=== PATIENT | male | born 1950 | race Caucasian/White ===

== ENCOUNTER 2018-04-12 14:01 | Outpatient (REF) | payer MEDICARE, OTHER, SELFPAY ==
[2018-04-12 21:09] LABS: Abs Immature Grans 0.02 k/cumm (0.0-0.09); Absolute Basophil Count 0.03 k/cumm (0.0-0.2); Absolute Eosinophil Count 0.04 k/cumm (0.0-0.7); Absolute Lymphocyte Count 0.92 k/cumm (1.2-3.4); Absolute Monocyte Count 0.43 k/cumm (0.11-0.7); Absolute Neutrophil Count 8.09 k/cumm (1.2-6.7); Basophils % 0.3; Eosinophils % 0.4; HCT 45.3 % (40.0-50.0); HGB 14.6 g/dL (13.5-17.5); Immature Grans % 0.2; Lymphocytes % 9.7; Mean Corp. HGB Concentration 32.2 g/dL (32.0-36.0); Mean Corpuscular Hemoglobin 29.5 pg (27.0-33.0); Mean Corpuscular Volume 91.5 fL (80-95); Mean Platelet Volume 10.2 fL (8.0-11.0); Monocytes % 4.5; Neutrophils % 84.9; Platelet Count 244 x1000/uL (130-400); RBC 4.95 m/cumm (4.50-6.00); RBC Distribution Width 13.7 % (11.8-14.1); White Blood Cell Count 9.53 k/cumm (4.4-10.8)
[2018-04-12 21:20] LABS: Iron 112 ug/dL (50-175); Total Iron Binding Capacity 333 ug/dL (250-450); Transferrin Sat 34 % (20-55)
[2018-04-12 21:34] LABS: Ferritin 103 ng/mL (8-388)
== END 2018-04-12 14:21 ==
LOC: NCHCN 14:01
PROVIDERS: PCP Nurse Practitioner Family; Visit Provider Nurse Practitioner
DX: R53.81 Other malaise (principal); F32.9 Major depressive disorder, single episode, unspecified
CPT/HCPCS: 82728; 83540; 83550; 85025

== ENCOUNTER 2018-06-07 17:08 | Emergency (ER) | payer MEDICARE, OTHER, SELFPAY ==
[2018-06-07] VITALS (22 sets, daily range): BP systolic 110–129; BP diastolic 63–74; PULSE 77–102; RESP 9–20; TEMP 36.6–36.8; O2SAT 96–100
--- NOTE | 2018-06-07 17:26 | W.ED.GENAD ---
Discharge Plan Disposition Patient Disposition: HOME Condition: Fair Discharge Details Chief Complaint: Dizzy/Sync Clinical Impression: Weakness, Fatigue, CVA (cerebral vascular accident) Primary Care Provider: DI[facility]ANTE,[facility] Provider: Nereida Falcon Home Meds and New Rx's Prescriptions: Continue promethazine 25 mg tablet 25 mg PO Q6H PRN (Reason: nausea and vomiting) Qty: 30 RF: 1 lamotrigine 100 mg tablet 100 mg PO ONCE Qty: 30 RF: 3 ascorbic acid (vitamin C) [Vitamin C] 500 MG tablet 1,000 mg PO DAILY RF: 0 diphenhydramine HCl [Benadryl] 25 MG capsule 25 mg PO HS RF: 0 multivitamin 1 EACH capsule 1 ea PO DAILY RF: 0 cholecalciferol (vitamin D3) 1,000 UNIT capsule 1,000 unit PO DAILY RF: 0 calcium carbonate [Calcium 500] 500 MG tablet 500 mg PO DAILY RF: 0 food supplemt, lactose-reduced [Ensure Original] 237 ML liquid 237 ml PO BID RF: 0 methylphenidate HCl [Ritalin] 10 mg tablet 10 mg PO 1-2x/d Qty: 60 RF: 0 lorazepam 2 mg tablet 2 mg SL BID Qty: 45 RF: 0 tramadol 50 mg tablet 50 mg PO 1-2x/d Qty: 30 RF: 0 prednisone 10 MG tablet 10 mg PO DAILY RF: 0 Immune Support Tablet RF: 0 Herbal Support 1 ea PO DAILY RF: 0 No Action aspirin [Aspirin Childrens] 81 mg Tablet,Chewable 81 mg PO DAILY RF: 0 Discharge Instructions Instructions: Weakness (ED), Fatigue (ED) Additional Instructions: Encourage hydration. Please continue with medications as previously prescribed. Begin taking one aspirin daily. Please call primary care tomorrow and try to reschedule upcoming appointment to a sooner time. Please follow up with Dr. Guzman, number listed below. Continue your care with your press writer. If you develop new/worsening symptoms seek care urgently once again. Referrals: Eren Severino MD [ [facility] STAFF PHYSICIAN] - ([phone]) Discharge Data Discharge Date/Time-TO BE ENTERED AT DEPARTURE: 06/07/18 20:03 Medical Decision Making Patient presents with c/c of acute on chronic weakness, fatigue, diminished appetite and lightheadedness. Patient has had chronic issues since 2012 with waxing/waning of his symptoms. Is very frustrated that despite multiple workups no definitive diagnosis for the source of his symptoms has been found. Today, he is primarily concerned with an acute increase of these symptoms over the past 3-4 days. Has recently increased his prednisone from 3mg QD to 10mg QD at the advisement of his press writer. Revewied patients history and previous visits. reviewed recent notes from specialists for these issues. At this point, no acute abnormalities are noted. On exam, patient appears dehydrated, thin and pale. Appears primarily chronic in nature. Neurologic exam is intact, no acute abnormalities. At this time, I have broad differential diagnoses, will obtain head CT, EKG and laboratory evaluation. EKG was obtained, reviewed by Dr. Siddiqui with no acute abnormalities noted, no findings to suggest ischemia. Laboratory evaluation without significant abnormality. CT reviewed by radiologist. Significant for mild global cerebral atrophy consistent with patient's age. Minimal patchy hypodensitites within the white matter tracts of both cerebral hemispheres, nonspecific but typically seen with small vessel disease/chronic white matter ischemic changes and itching. Small hypodensities within the anterior limb o the right internal capsul, likely subacute/chronic lacunar infarct. Ventricle are unremarkable, no ventriculomegaly. Advised considering MRI if clinically indicated. Consulted with Dr. Giang who has seen the patient previously. In particular, we discussed the hypodensity noted on the CT. She advised beginning the patient on aspirin. I questioned the need for Plavix and she advised against this and just to begin the ASA. We discussed the possible need for MRI, she will see the patient first in clinic again and order this as needed. We discussed the symptoms typically associates with a stroke in the affected area, he denies ever noted a focal motor or sensory deficit. Unknown when stroke may have occurred. Discussed the findings with the patient and his friend. Discussed recommendations of Dr. Guzman. Patient has been on ASA previously, has not been taking this recently. He denies any stroke like symptoms. Again, no focal deficits at this time. I advised that at this time, I do not see a source of his acute on chronic flare of symptoms. He has upcoming appointment with PCP in 2 weeks, I advised he try to contact them to see if he can move this up. He did receive IV bolus while here which he reports helped. I discussed that he did appear dehydrated on exam which may be the source of his increased symptoms. He will contact neurologist for follow up as advised above. Advised he continue to work with his press writer. Discussed new/worsening symptoms and when to seek care urgently once again. All of his questions and concerns were addressed, he is in agreement iwth this plan. Will begin the daily ASA. Tick and Lyme panel, which patient has had a few years ago and found to be negative, is still pending. We will contact him with any positive results. HPI General Mode of arrival: ambulatory. Date/Time Provider Initiated Documentation: 06/07/18 17:13. Limitations to Documentation: no limitations. Information obtained by: patient. HPI Narrative: Patient is a 68-year-old male, coming by friend, with multiple complaints. Primary complaint at this point is fatigue, generalized discomfort, weakness and lightheadedness times 3-4 days. Patient does report that multiple of these are chronic in nature. He reports that beginning in 2012 he has had nausea, fatigue, diminished appetite and feeling like he constantly has a flulike illness. He has been seen by multiple specialist both here as well as at [facility] without resolution of his symptoms. He has been diagnosed with polymyalgia rheumatica. Is chronically on steroids. Reports that he had been on a daily 3 mg dosing but that he did have to increase this last week. He is currently at 10 mg daily. He is followed by press writer at [facility]. Patient has history of GERD, chronic abdominal pain and nausea, migraine, hyperlipidemia, BPH. The past, he has been seen by gastroenterology, general surgeons, neurologist, natural path, press writer. Testing thus far has not revealed any abnormalities to account for all of his symptoms. Reports that the steroids to help with symptomatic management that despite this recent increase once again, he continues to have this flare of his chronic issues. His friend initially reported that he was confused. However, on further discussion of this the patient was not actually confused but rather slow to answer her questions. He is alert, appropriate with a intact neuro exam on exam today. I have seen this patient historically he seems to be at his baseline compared to when I seen him previously. Related Data Home Medications Medication Instructions Recorded Confirmed ascorbic acid (vitamin C) [Vitamin 1,000 mg PO DAILY NS 08/29/13 06/07/18 C] cholecalciferol (vitamin D3) 1,000 unit PO DAILY NS 08/29/13 06/07/18 diphenhydramine HCl [Benadryl] 25 mg PO HS NS 08/29/13 06/07/18 multivitamin 1 ea PO DAILY NS 08/29/13 06/07/18 prednisone 10 mg PO DAILY 08/16/15 06/07/18 Herbal Support 1 ea PO DAILY 12/23/16 06/07/18 Immune Support Tablet 05/15/17 calcium carbonate [Calcium 500] 500 mg PO DAILY 07/07/17 06/07/18 food supplemt, lactose-reduced 237 ml PO BID 07/07/17 06/07/18 [Ensure Original] promethazine 25 mg tablet 25 mg PO Q6H PRN #30 tab 04/05/18 06/07/18 methylphenidate 10 mg tablet 10 mg PO 1-2x/d #60 tab-cap 04/15/18 06/07/18 lamotrigine 100 mg tablet 100 mg PO ONCE #30 tab 05/03/18 05/03/18 lorazepam 2 mg tablet 2 mg SL BID #45 tab 05/27/18 06/07/18 tramadol 50 mg tablet 50 mg PO 1-2x/d #30 tab-cap 05/27/18 06/07/18 aspirin [Aspirin Childrens] 81 mg PO DAILY 06/07/18 06/07/18 Previous Rx's Medication Instructions Recorded promethazine 25 mg tablet 25 mg PO Q6H PRN #30 tab 04/05/18 methylphenidate 10 mg tablet 10 mg PO 1-2x/d #60 tab-cap 04/15/18 lamotrigine 100 mg tablet 100 mg PO ONCE #30 tab 05/03/18 lorazepam 2 mg tablet 2 mg SL BID #45 tab 05/27/18 tramadol 50 mg tablet 50 mg PO 1-2x/d #30 tab-cap 05/27/18 Allergies Allergy/AdvReac Type Severity Reaction Status Date / Time chlorpheniramine polistirex AdvReac hallucinati Unverified 07/15/17 08:36 [From Tussionex] ons hydrocodone polistirex AdvReac hallucinati Unverified 07/15/17 08:36 [From Tussionex] ons MIRTAZEPINE Allergy Mild Uncoded 12/12/17 15:01 General Stated Complaint: Dizzy/Sync ROCHELLE: 2 Review of Systems Constitutional Reports as per HPI, Denies chills, Denies difficulty sleeping, Reports fatigue, Denies fever(s), Denies headache(s) (patient has chronic headache which he associates with his chronic pain and migraines, none at this time), Reports poor appetite and Reports weakness Eyes Denies change in vision and Denies loss of vision ENT Denies abnormal hearing, Denies vertigo, Reports dizziness (endorses lightheadedness) and Denies headache(s) (patient has chronic headache which he associates with his chronic pain and migraines, none at this time) Cardiovascular Reports as per HPI, Denies chest pain, Denies syncope, Denies palpitations, Denies dyspnea and Denies dyspnea on exertion Respiratory Reports as per HPI, Denies cough, Denies dyspnea and Denies dyspnea on exertion Gastrointestinal Reports as per HPI and Reports abdominal pain (chronic abdominal pain and nausea, no increase in this recently. Poor appetite for several years, increasing recently) Genitourinary Denies system reviewed and no additional complaints, except as docu (denies any change in urinary habits) Musculoskeletal Reports as per HPI (chronic diffuse pain), Denies abnormal gait, Denies numbness and Denies tingling Integumentary/Breasts Denies rash Neurologic Reports as per HPI, Denies abnormal hearing, Denies abnormal movements, Denies abnormal speech, Denies abnormal gait, Denies behavioral changes, Denies vertigo, Reports dizziness (endorses lightheadedness), Denies syncope, Denies headache(s) (patient has chronic headache which he associates with his chronic pain and migraines, none at this time), Denies lack of coordination, Denies focal weakness, Denies loss of vision, Denies numbness, Denies radicular pain, Denies seizure-like activity, Denies sensory deficit, Denies tingling and Reports weakness Psychiatric Denies behavioral changes Endocrine Reports fatigue and Denies palpitations [facility] Social History Smoking/Tobacco Use Status: Former Tobacco Use Exam Const General: cooperative, comfortable, no acute distress, well developed and well groomed Nutritional Appearance: thin Orientation: alert, awake and oriented x3 HENMT Head: normal to inspection and normocephalic Ears: hearing grossly normal bilaterally General nose exam: external nose normal Mouth: oral mucosae normal, lip normal and mucous membranes dry (patient appears dry on exam) Throat: posterior oropharynx normal, tonsils normal and uvula midline Eyes General: appearance normal, both eyes and all related structures Alignment and Position: alignment normal Periorbital: periorbital findings normal Eyelids: eyelids normal Conjunctivae: conjunctivae normal Pupils: PERRL EOM: EOM intact bilaterally and No nystagmus Resp Effort & Inspection: normal respiratory effort, able to speak in complete sentences and no respiratory distress Auscultation: clear to auscultation bilaterally, no rales, no rhonchi and no wheezes Cardio Rate: regular rate Rhythm: regular rhythm Heart Sounds: S1 normal and S2 normal GI Inspection: normal to inspection Palpation: soft, no hepatosplenomegaly, not firm, no guarding, not rigid and nontender Auscultation: normal bowel sounds Skin General skin exam: no rashes or lesions noted, dry skin, no erythema and no petechiae Neuro General: alert, awake, oriented x3, gait normal, tone normal, moves all extremities, no meningeal signs, no focal motor deficits and CN's II-XI intact bilaterally Cranial Nerves: CN's II-XI intact bilaterally, PERRL, accommodation normal, EOM intact bilaterally, no nystagmus, facial strength normal, tongue midline, hearing normal, able to elevate shoulders bilaterally and no nystagmus Cognition: normal cognition Speech: speech normal Gait: normal gait Motor: muscle tone normal throughout, strength 5/5 throughout, no pronator drift, no movement abnormalities noted and no fasciculations Sensory Exam: no sensory deficits noted DTR's: Rt Triceps: 2+, Lt Triceps: 2+, Rt Brachioradialis: 2+, Lt Brachioradialis: 2+, Rt Patellar: 2+, Lt Patellar: 2+, Rt Ankle: 2+ and Lt Ankle: 2+ Plantar Reflexes: Downgoing: bilateral Coordination: [id number] test normal, [id number] test normal, Romberg test normal and rapid alternating movement UE normal Extrem General: normal to inspection, no pedal edema, no calf tenderness and normal gait Psych Appearance: grossly normal and well kempt Mental Status: mental status grossly normal Speech and Movement: speech and movement normal Course Vital Signs Temperature 36.6 C 06/07/18 17:19 Pulse 87 06/07/18 17:19 Respiratory Rate 18 06/07/18 17:19 Blood Pressure 121/68 06/07/18 17:19 Pulse Oximetry 100 06/07/18 17:19 Temperature 36.6 C 06/07/18 17:19 Temperature Source Temporal Artery Scan 06/07/18 17:19 Pulse 87 06/07/18 17:19 Respiratory Rate 18 06/07/18 17:19 Blood Pressure 121/68 06/07/18 17:19 Blood Pressure Position Supine 06/07/18 17:19 Pulse Oximetry 100 06/07/18 17:19 Oxygen Delivery Method Room Air 06/07/18 17:19 Oxygen Flow Rate 0 06/07/18 17:19 Pain Level 3 06/07/18 17:19
--- NOTE | 2018-06-07 17:44 | DI.CT_ITS ---
SYMPTOM/DIAGNOSIS: DIZZINESS CT BRAIN: Noncontrast examination was performed. No priors for comparison. The ventricles and sulci are consistent with the patient's age. There are areas of decreased attenuation in the white matter consistent with small vessel ischemic disease. No intracranial hemorrhage, acute midline shift or mass effect is identified. The ventricles are intact. The basilar cisterns are patent. There is an area of decreased attenuation noted within the anterior limb of the right internal capsule. This may represent a lacunar infarct of indeterminate acuity. The visualized paranasal sinuses are clear. The mastoid air cells are well pneumatized. The calvarium is intact. IMPRESSION: Small hypodensity seen in the anterior aspect of the anterior limb of the right internal capsule. This may represent a lacunar infarct of indeterminate acuity. If further imaging is warranted an MRI should be considered. 2. Age appropriate cerebral atrophy and small vessel ischemic disease.
[2018-06-07 17:53] LABS: Bilirubin Negative (Negative); Blood Trace-intact (Negative); Clarity Clear; Glucose Negative (Negative); Ketones Negative (Negative); Leukocyte Esterase Negative (Negative); Nitrite Negative (Negative); Urobilinogen 0.2 EU/dL (Up TO 0.2); pH 6.5 (5-8)
[2018-06-07] MEDS: Normal Saline 1,000 ML 1000 ML IV (18:05)
[2018-06-07 18:15] LABS: Abs Immature Grans 0.02 k/cumm (0.0-0.09); Absolute Basophil Count 0.01 k/cumm (0.0-0.2); Absolute Lymphocyte Count 0.85 k/cumm (1.2-3.4); Absolute Monocyte Count 0.41 k/cumm (0.11-0.7); Absolute Neutrophil Count 9.29 k/cumm (1.2-6.7); Basophils % 0.1; HCT 43.9 % (40.0-50.0); HGB 14.6 g/dL (13.5-17.5); Immature Grans % 0.2; Mean Corp. HGB Concentration 33.3 g/dL (32.0-36.0); Mean Corpuscular Hemoglobin 29.9 pg (27.0-33.0); Mean Platelet Volume 9.7 fL (8.0-11.0); Monocytes % 3.9; Neutrophils % 87.8; Platelet Count 266 x1000/uL (130-400); RBC 4.88 m/cumm (4.50-6.00); RBC Distribution Width 14.1 % (11.8-14.1); White Blood Cell Count 10.58 k/cumm (4.4-10.8)
--- NOTE | 2018-06-07 18:19 | ED.GENADUL_ITS ---
Discharge Plan Disposition Patient Disposition: HOME Condition: Fair Discharge Details Chief Complaint: Dizzy/Sync Clinical Impression: Weakness, Fatigue, CVA (cerebral vascular accident) Primary Care Provider: DIAMANTE,LOCAL ED Provider: Nereida Falcon Home Meds and New Rx's Prescriptions: Continue promethazine 25 mg tablet 25 mg PO Q6H PRN (Reason: nausea and vomiting) Qty: 30 RF: 1 lamotrigine 100 mg tablet 100 mg PO ONCE Qty: 30 RF: 3 ascorbic acid (vitamin C) [Vitamin C] 500 MG tablet 1,000 mg PO DAILY RF: 0 diphenhydramine HCl [Benadryl] 25 MG capsule 25 mg PO HS RF: 0 multivitamin 1 EACH capsule 1 ea PO DAILY RF: 0 cholecalciferol (vitamin D3) 1,000 UNIT capsule 1,000 unit PO DAILY RF: 0 calcium carbonate [Calcium 500] 500 MG tablet 500 mg PO DAILY RF: 0 food supplemt, lactose-reduced [Ensure Original] 237 ML liquid 237 ml PO BID RF: 0 methylphenidate HCl [Ritalin] 10 mg tablet 10 mg PO 1-2x/d Qty: 60 RF: 0 lorazepam 2 mg tablet 2 mg SL BID Qty: 45 RF: 0 tramadol 50 mg tablet 50 mg PO 1-2x/d Qty: 30 RF: 0 prednisone 10 MG tablet 10 mg PO DAILY RF: 0 Immune Support Tablet RF: 0 Herbal Support 1 ea PO DAILY RF: 0 No Action aspirin [Aspirin Childrens] 81 mg Tablet,Chewable 81 mg PO DAILY RF: 0 Discharge Instructions Instructions: Weakness (ED), Fatigue (ED) Additional Instructions: Encourage hydration. Please continue with medications as previously prescribed. Begin taking one aspirin daily. Please call primary care tomorrow and try to reschedule upcoming appointment to a sooner time. Please follow up with Dr. Guzman, number listed below. 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 If you develop new/worsening symptoms seek care urgently once again. Referrals: Eren Severino MD [ [facility] STAFF PHYSICIAN] - ([phone]) Discharge Data Discharge Date/Time-TO BE ENTERED AT DEPARTURE: 06/07/18 20:03 Medical Decision Making Patient presents with c/c of acute on chronic weakness, fatigue, diminished appetite and lightheadedness. Patient has had chronic issues since 2012 with waxing/waning of his symptoms. Is very frustrated that despite multiple workups no definitive diagnosis for the source of his symptoms has been found. Today, he is primarily concerned with an acute increase of these symptoms over the past 3-4 days. 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 Revewied patients history and previous visits. reviewed recent notes from specialists for these issues. At this point , no acute abnormalities are noted. On exam, patient appears dehydrated, thin and pale. Appears primarily chronic in nature. Neurologic exam is intact, no acute abnormalities. At this time, I have broad differential diagnoses, will obtain head CT, EKG and laboratory evaluation. EKG was obtained, reviewed by Dr. Siddiqui with no acute abnormalities noted, no findings to suggest ischemia. Laboratory evaluation without significant abnormality. CT reviewed by radiologist. Significant for mild global cerebral atrophy consistent with patient's age. Minimal patchy hypodensitites within the white matter tracts of both cerebral hemispheres, nonspecific but typically seen with small vessel disease/chronic white matter ischemic changes and itching. Small hypodensities within the anterior limb o the right internal capsul, likely subacute/chronic lacunar infarct. Ventricle are unremarkable, no ventriculomegaly. Advised considering MRI if clinically indicated. Consulted with Dr. Giang who has seen the patient previously. In particular, we discussed the hypodensity noted on the CT. She advised beginning the patient on aspirin. I questioned the need for Plavix and she advised against this and just to begin the ASA. We discussed the possible need for MRI, she will see the patient first in clinic again and order this as needed. We discussed the symptoms typically associates with a stroke in the affected area, he denies ever noted a focal motor or sensory deficit. Unknown when stroke may have occurred. Discussed the findings with the patient and his friend. Discussed recommendations of Dr. Guzman. Patient has been on ASA previously, has not been taking this recently. He denies any stroke like symptoms. Again, no focal deficits at this time. I advised that at this time, I do not see a source of his acute on chronic flare of symptoms. He has upcoming appointment with PCP in 2 weeks, I advised he try to contact them to see if he can move this up. He did receive IV bolus while here which he reports helped. I discussed that he did appear dehydrated on exam which may be the source of his increased symptoms. He will contact neurologist for follow up as advised above. 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 Discussed new/worsening symptoms and when to seek care urgently once again. All of his questions and concerns were addressed, he is in agreement iwth this plan. Will begin the daily ASA. Tick and Lyme panel, which patient has had a few years ago and found to be negative, is still pending. We will contact him with any positive results. HPI General Mode of arrival: ambulatory . Date/Time Provider Initiated Documentation: 06/07/18 17:13 . Limitations to Documentation: no limitations . Information obtained by: patient . HPI Narrative: Patient is a 68-year-old male, coming by friend, with multiple complaints. Primary complaint at this point is fatigue, generalized discomfort , weakness and lightheadedness times 3-4 days. Patient does report that multiple of these are chronic in nature. He reports that beginning in 2012 he has had nausea, fatigue, diminished appetite and feeling like he constantly has a flulike illness. He has been seen by multiple specialist both here as well as at [facility] without resolution of his symptoms. He has been diagnosed with polymyalgia rheumatica. Is chronically on steroids. Reports that he had been on a daily 3 mg dosing but that he did have to increase this last week. He is currently at 10 mg daily. He is followed by upholsterer assembly line at [facility]. Patient has history of GERD, chronic abdominal pain and nausea, migraine, hyperlipidemia, BPH. The past, he has been seen by gastroenterology, general surgeons, neurologist, natural path, upholsterer assembly line. Testing thus far has not revealed any abnormalities to account for all of his symptoms. Reports that the steroids to help with symptomatic management that despite this recent increase once again, he continues to have this flare of his chronic issues. His friend initially reported that he was confused. However, on further discussion of this the patient was not actually confused but rather slow to answer her questions. He is alert, appropriate with a intact neuro exam on exam today. I have seen this patient historically he seems to be at his baseline compared to when I seen him previously. Related Data Home Medications Medication Instructions Recorded Confirmed ascorbic acid (vitamin C) [Vitamin 1,000 mg PO DAILY NS 08/29/13 06/07/18 C] cholecalciferol (vitamin D3) 1,000 unit PO DAILY NS 08/29/13 06/07/18 diphenhydramine HCl [Benadryl] 25 mg PO HS NS 08/29/13 06/07/18 multivitamin 1 ea PO DAILY NS 08/29/13 06/07/18 prednisone 10 mg PO DAILY 08/16/15 06/07/18 Herbal Support 1 ea PO DAILY 12/23/16 06/07/18 Immune Support Tablet 05/15/17 calcium carbonate [Calcium 500] 500 mg PO DAILY 07/07/17 06/07/18 food supplemt, lactose-reduced 237 ml PO BID 07/07/17 06/07/18 [Ensure Original] promethazine 25 mg tablet 25 mg PO Q6H PRN #30 tab 04/05/18 06/07/18 methylphenidate 10 mg tablet 10 mg PO 1-2x/d #60 tab-cap 04/15/18 06/07/18 lamotrigine 100 mg tablet 100 mg PO ONCE #30 tab 05/03/18 05/03/18 lorazepam 2 mg tablet 2 mg SL BID #45 tab 05/27/18 06/07/18 tramadol 50 mg tablet 50 mg PO 1-2x/d #30 tab-cap 05/27/18 06/07/18 aspirin [Aspirin Childrens] 81 mg PO DAILY 06/07/18 06/07/18 Previous Rx's Medication Instructions Recorded promethazine 25 mg tablet 25 mg PO Q6H PRN #30 tab 04/05/18 methylphenidate 10 mg tablet 10 mg PO 1-2x/d #60 tab-cap 04/15/18 lamotrigine 100 mg tablet 100 mg PO ONCE #30 tab 05/03/18 lorazepam 2 mg tablet 2 mg SL BID #45 tab 05/27/18 tramadol 50 mg tablet 50 mg PO 1-2x/d #30 tab-cap 05/27/18 Allergies Allergy/AdvReac Type Severity Reaction Status Date / Time chlorpheniramine polistirex AdvReac hallucinati Unverified 07/15/17 08:36 [From Tussionex] ons hydrocodone polistirex AdvReac hallucinati Unverified 07/15/17 08:36 [From Tussionex] ons MIRTAZEPINE Allergy Mild Uncoded 12/12/17 15:01 General Stated Complaint: Dizzy/Sync ROCHELLE: 2 Review of Systems Constitutional Reports as per HPI, Denies chills, Denies difficulty sleeping, Reports fatigue, Denies fever(s), Denies headache(s) (patient has chronic headache which he associates with his chronic pain and migraines, none at this time), Reports poor appetite and Reports weakness Eyes Denies change in vision and Denies loss of vision ENT Denies abnormal hearing, Denies vertigo, Reports dizziness (endorses lightheadedness) and Denies headache(s) (patient has chronic headache which he associates with his chronic pain and migraines, none at this time) Cardiovascular Reports as per HPI, Denies chest pain, Denies syncope, Denies palpitations, Denies dyspnea and Denies dyspnea on exertion Respiratory Reports as per HPI, Denies cough, Denies dyspnea and Denies dyspnea on exertion Gastrointestinal Reports as per HPI and Reports abdominal pain (chronic abdominal pain and nausea , no increase in this recently. Poor appetite for several years, increasing recently) Genitourinary Denies system reviewed and no additional complaints, except as docu (denies any change in urinary habits) Musculoskeletal Reports as per HPI (chronic diffuse pain), Denies abnormal gait, Denies numbness and Denies tingling Integumentary/Breasts Denies rash Neurologic Reports as per HPI, Denies abnormal hearing, Denies abnormal movements, Denies abnormal speech, Denies abnormal gait, Denies behavioral changes, Denies vertigo , Reports dizziness (endorses lightheadedness), Denies syncope, Denies headache( s) (patient has chronic headache which he associates with his chronic pain and migraines, none at this time), Denies lack of coordination, Denies focal weakness, Denies loss of vision, Denies numbness, Denies radicular pain, Denies seizure-like activity, Denies sensory deficit, Denies tingling and Reports weakness Psychiatric Denies behavioral changes Endocrine Reports fatigue and Denies palpitations [facility] Social History Smoking/Tobacco Use Status: Former Tobacco Use Exam Const General: cooperative, comfortable, no acute distress, well developed and well groomed Nutritional Appearance: thin Orientation: alert, awake and oriented x3 HENMT Head: normal to inspection and normocephalic Ears: hearing grossly normal bilaterally General nose exam: external nose normal Mouth: oral mucosae normal, lip normal and mucous membranes dry (patient appears dry on exam) Throat: posterior oropharynx normal, tonsils normal and uvula midline Eyes General: appearance normal, both eyes and all related structures Alignment and Position: alignment normal Periorbital: periorbital findings normal Eyelids: eyelids normal Conjunctivae: conjunctivae normal Pupils: PERRL EOM: EOM intact bilaterally and No nystagmus Resp Effort & Inspection: normal respiratory effort, able to speak in complete sentences and no respiratory distress Auscultation: clear to auscultation bilaterally, no rales, no rhonchi and no wheezes Cardio Rate: regular rate Rhythm: regular rhythm Heart Sounds: S1 normal and S2 normal GI Inspection: normal to inspection Palpation: soft, no hepatosplenomegaly, not firm, no guarding, not rigid and nontender Auscultation: normal bowel sounds Skin General skin exam: no rashes or lesions noted, dry skin, no erythema and no petechiae Neuro General: alert, awake, oriented x3, gait normal, tone normal, moves all extremities, no meningeal signs, no focal motor deficits and CN's II-XI intact bilaterally Cranial Nerves: CN's II-XI intact bilaterally, PERRL, accommodation normal, EOM intact bilaterally, no nystagmus, facial strength normal, tongue midline, hearing normal, able to elevate shoulders bilaterally and no nystagmus Cognition: normal cognition Speech: speech normal Gait: normal gait Motor: muscle tone normal throughout, strength 5/5 throughout, no pronator drift , no movement abnormalities noted and no fasciculations Sensory Exam: no sensory deficits noted DTR's: Rt Triceps: 2+, Lt Triceps: 2+, Rt Brachioradialis: 2+, Lt Brachioradialis: 2+, Rt Patellar: 2+, Lt Patellar: 2+, Rt Ankle: 2+ and Lt Ankle : 2+ Plantar Reflexes: Downgoing: bilateral Coordination: [id number] test normal, [id number] test normal, Romberg test normal and rapid alternating movement UE normal Extrem General: normal to inspection, no pedal edema, no calf tenderness and normal gait Psych Appearance: grossly normal and well kempt Mental Status: mental status grossly normal Speech and Movement: speech and movement normal Course Vital Signs Temperature 36.6 C 06/07/18 17:19 Pulse 87 06/07/18 17:19 Respiratory Rate 18 06/07/18 17:19 Blood Pressure 121/68 06/07/18 17:19 Pulse Oximetry 100 06/07/18 17:19 Temperature 36.6 C 06/07/18 17:19 Temperature Source Temporal Artery Scan 06/07/18 17:19 Pulse 87 06/07/18 17:19 Respiratory Rate 18 06/07/18 17:19 Blood Pressure 121/68 06/07/18 17:19 Blood Pressure Position Supine 06/07/18 17:19 Pulse Oximetry 100 06/07/18 17:19 Oxygen Delivery Method Room Air 06/07/18 17:19 Oxygen Flow Rate 0 06/07/18 17:19 Pain Level 3 06/07/18 17:19
[2018-06-07 18:33] LABS: Bacteria Negative HPF (Negative); C & S Indicated? No; Casts Negative LPF (Negative); Crystals Negative HPF (Negative); Epithelial Cells Negative HPF (Negative); Mucus Negative (Negative); Other Cells Negative (Negative); RBC Negative (0-2); WBC 0-2 HPF (0-5)
--- NOTE | 2018-06-07 18:40 | DI.VRAD_ITS ---
EXAM: CT Head Without Intravenous Contrast EXAM DATE/TIME: 06/07/2018 5:45 PM CLINICAL HISTORY: 68 years old, male; Signs and symptoms; Dizziness TECHNIQUE: Axial computed tomography images of the head/brain without intravenous contrast. Coronal and sagittal reformatted images were created and reviewed. COMPARISON: No relevant prior studies available. FINDINGS: Brain: Mild global cerebral atrophy consistent with patient's age. Minimal patchy hypodensities within the white matter tracts of both cerebral hemispheres, nonspecific but typically seen with small vessel disease/chronic white matter ischemic changes and itching. Small hypodensity within the anterior limb of the right internal capsule, likely subacute/chronic lacunar infarct. Ventricles: Unremarkable. No ventriculomegaly. Bones/joints: Consider MRI assessment as clinically indicated. Sinuses: Normal as visualized. No acute sinusitis. Mastoid air cells: Normal as visualized. No mastoid effusion. Soft tissues: Unremarkable. Vasculature: Mild atherosclerosis. IMPRESSION: 1. Small hypodensity within the antrum of the right internal capsule, likely subacute/chronic lacunar infarct. Consider MRI assessment as clinically indicated. 2. Minimal global cerebral atrophy and small vessel disease. Dictated and Authenticated by: Matt Jara MD. Ordering:STORM REN MD
[2018-06-07 19:01] LABS: ALT 34 U/L (12-78); AST 16 U/L (15-37); Albumin 3.7 g/dL (3.4-5.0); Alkaline Phosphatase 70 U/L (46-116); Anion Gap 8.7 mmol/L (3-11); BUN 21 mg/dL (7-18); Bilirubin, Total 0.3 mg/dL (0.2-1.0); CO2 27.3 mmol/L (21.0-32.0); CREATININE 0.76 mg/dL (0.70-1.30); Calcium 8.9 mg/dL (8.5-10.1); Chloride 102 mmol/L (98-107); Glucose 116 mg/dL (70-100); Magnesium 2.3 mg/dL (1.8-2.4); Potassium 3.9 mmol/L (3.5-5.1); Sodium 138 mmol/L (136-145); TSH 1.58 uIU/mL (0.358-3.74); Total Protein 7.1 g/dL (6.4-8.2)
[2018-06-07 19:02] LABS: Troponin I < 0.02 ng/mL (0.00-0.06)
[2018-06-09 11:55] LABS: Lyme Ab w Rflx to Lyme Confirm Negative
[2018-06-09 23:04] LABS: Anaplasma phagocytophilum Negative (Negative); B. miyamotoi PCR Negative (Negative); Babesia divergens/MO-1 Negative (Negative); Babesia duncani Negative (Negative); Babesia microti Negative (Negative); Ehrlichia chaffeensis Negative (Negative); Ehrlichia ewingii/canis Negative (Negative); Ehrlichia muris eauclairensis Negative (Negative)
== END 2018-06-07 20:03 | disposition home or self-care (01) ==
PROVIDERS: Emergency Provider Physician Assistant
DX: I63.9 Cerebral infarction, unspecified (principal); R53.1 Weakness; R53.83 Other fatigue; M35.3 Polymyalgia rheumatica; Z79.52 Long term (current) use of systemic steroids
CPT/HCPCS: 36415; 80053; 93005; 96360; 99285; 70450; 81003; 81015; 83735; 84443; 84484; 85025; 86618; 87798; 93010

== ENCOUNTER 2018-06-18 01:23 | Outpatient (CLI) | payer MEDICARE, SELFPAY ==
--- NOTE | 2018-07-18 16:56 | ZIOP_ITS ---
ZIO PATCH REPORT DATE OF DICTATION July 17, 2018 STUDY INDICATION CVA REQUESTING PROVIDER Eren Severino M.D. FINDINGS The patient was monitored for 13 days and 21 hours. COMMENTS The predominant underlying rhythm was sinus rhythm. Average heart rate in sinus 82 beats per minute. Range 52 to 146 beats per minute. There was rare supraventricular ectopy. There were 33 atrial runs, average heart rate 130 beats per minute, range 92 to 207 beats per minute. The longest episode lasted 56 minutes and 26 seconds. There was occasional ventricular ectopy, 1.5% PVCs. There was one ventricular run with an average hea rt rate of 205 beats per minute, lasting 5 beats. There were no pauses greater than 3 seconds. There was no higher degree heart block. There were 8 patient events, none of the events correlated with arrhythmias. FINAL INTERPRETATION Bursts of atrial tachycardia, asymptomatic. Isacc Vanegas M.D. [place]/aliyah T - 07/18/2018
== END 2018-06-18 01:43 ==
PROVIDERS: PCP Internal Medicine; Visit Provider Internal Medicine
DX: I63.9 Cerebral infarction, unspecified (principal); I47.1 Supraventricular tachycardia
CPT/HCPCS: 93225

== ENCOUNTER 2018-06-28 00:52 | Outpatient (CLI) | payer MEDICARE, SELFPAY ==
--- NOTE | 2018-06-28 14:35 | DI.MRI_ITS ---
SYMPTOM/DIAGNOSIS: OTHER CEREBRAL INFARCTION DUE TO OCCLUSION OR STENOSIS OR SMALL ARTERY i 63.81 MRI BRAIN: Routine noncontrast examination. Comparison CT scan is 06/07/18 The ventricles and sulci are consistent with the patient's age. There is normal signal in the brain parenchyma. The defusion weighted images show no evidence of an acute infarct. No intracranial hemorrhage is seen. The ventricles are intact. The basilar cisterns are patent. No acute midline shift or mass effect is present. The pituitary gland appears grossly unremarkable. There is a flow void in the [place]. IMPRESSION: No acute abnormality. 2. No evidence of an acute infarct or intracranial hemorrhage.
== END 2018-06-28 01:12 ==
PROVIDERS: PCP Internal Medicine; Visit Provider Internal Medicine
DX: I63.81 Other cerebral infarction due to occlusion or stenosis of small artery (principal)
CPT/HCPCS: 70551

== ENCOUNTER 2018-07-07 01:20 | Outpatient (CLI) | payer MEDICARE, SELFPAY ==
--- NOTE | 2018-07-07 14:22 | DI.US_ITS ---
SYMPTOMS/DIAGNOSIS: OTHER CEREBRAL INFARCTION DUE TO OCCLUSION OR STENOSIS OF SMALL ARTERY, I63.81, SMALL VESSEL CEREBROVASCULAR DISEASE CAROTID ULTRASOUND: Routine examination was performed. There are no priors. There is mild intimal thickening seen in the left carotid bulb. Mild calcific plaque is seen in the left carotid bulb. No hemodynamically significant velocity elevations are seen on the left. The left vertebral artery is antegrade. On the right, no hemodynamically significant velocity elevations are seen. The right vertebral artery is antegrade. IMPRESSION: No evidence of hemodynamically significant cervical carotid artery stenosis.
== END 2018-07-07 01:40 ==
PROVIDERS: PCP Internal Medicine; Visit Provider Internal Medicine
DX: I63.81 Other cerebral infarction due to occlusion or stenosis of small artery (principal)
CPT/HCPCS: 93880

== ENCOUNTER 2018-07-17 08:31 | Outpatient (CLI) | payer MEDICARE, SELFPAY | END 2018-07-17 08:51 | PROVIDERS: PCP Internal Medicine; Referring Provider Internal Medicine; Visit Provider Student in an Organized Health Care Education/Training Program | DX: I63.9 Cerebral infarction, unspecified (principal); I47.1 Supraventricular tachycardia | CPT/HCPCS: 0298T ==

== ENCOUNTER → 2018-08-04 13:45 | Outpatient (BNVA) | payer MEDICARE, OTHER, SELFPAY | PROVIDERS: Visit Provider Psychiatry & Neurology Neurology | DX: R11.0 Nausea (principal); R53.83 Other fatigue | CPT/HCPCS: 99214 ==

== ENCOUNTER → 2019-01-03 11:33 | Outpatient (BNVA) | payer MEDICARE, SELFPAY | PROVIDERS: PCP Nurse Practitioner Family; Referring Provider Nurse Practitioner Family; Visit Provider Physical Therapy Assistant | DX: R10.13 Epigastric pain (principal); R11.0 Nausea; K30 Functional dyspepsia; R53.83 Other fatigue | CPT/HCPCS: 99212; 99213 ==

== ENCOUNTER 2019-06-09 18:18 | Outpatient (REF) | payer MEDICARE, SELFPAY ==
[2019-06-09 21:30] LABS: Abs Immature Grans 0.02 k/cumm (0.0-0.09); Absolute Basophil Count 0.03 k/cumm (0.0-0.2); Absolute Eosinophil Count 0.02 k/cumm (0.0-0.7); Absolute Lymphocyte Count 0.85 k/cumm (1.2-3.4); Absolute Monocyte Count 0.31 k/cumm (0.11-0.7); Absolute Neutrophil Count 6.41 k/cumm (1.2-6.7); Basophils % 0.4; Eosinophils % 0.3; Immature Grans % 0.3; Lymphocytes % 11.1; Mean Corp. HGB Concentration 32.6 g/dL (32.0-36.0); Mean Corpuscular Hemoglobin 30.2 pg (27.0-33.0); Mean Corpuscular Volume 92.7 fL (80-95); Mean Platelet Volume 10.8 fL (8.0-11.0); Monocytes % 4.1; Neutrophils % 83.8; Platelet Count 241 x1000/uL (130-400); RBC 4.64 m/cumm (4.50-6.00); RBC Distribution Width 14.1 % (11.8-14.1); White Blood Cell Count 7.64 k/cumm (4.4-10.8)
[2019-06-09 22:11] LABS: Anion Gap 7.9 mmol/L (3-11); BUN 15 mg/dL (7-18); CO2 30.1 mmol/L (21.0-32.0); CREATININE 0.87 mg/dL (0.70-1.30); Calcium 8.9 mg/dL (8.5-10.1); Chloride 104 mmol/L (98-107); Glucose 95 mg/dL (70-100); Potassium 4.3 mmol/L (3.5-5.1); Sodium 142 mmol/L (136-145); TSH (W/Ref FT4) 1.67 uIU/mL (0.36-3.74)
== END 2019-06-09 18:38 ==
LOC: NCHCN 18:18
PROVIDERS: PCP Nurse Practitioner Family; Visit Provider Nurse Practitioner Family
DX: R53.83 Other fatigue (principal)
CPT/HCPCS: 80048; 84443; 85025

== ENCOUNTER 2019-06-29 13:33 | Outpatient (CLI) | payer MEDICARE, SELFPAY ==
[2019-06-29 14:06] LABS: Abs Immature Grans 0.02 k/cumm (0.0-0.09); Absolute Basophil Count 0.01 k/cumm (0.0-0.2); Absolute Eosinophil Count 0.01 k/cumm (0.0-0.7); Absolute Lymphocyte Count 0.86 k/cumm (1.2-3.4); Absolute Monocyte Count 0.17 k/cumm (0.11-0.7); Absolute Neutrophil Count 7.53 k/cumm (1.2-6.7); Basophils % 0.1; Eosinophils % 0.1; HCT 44.1 % (40.0-50.0); HGB 14.3 g/dL (13.5-17.5); Immature Grans % 0.2; Mean Corp. HGB Concentration 32.4 g/dL (32.0-36.0); Mean Corpuscular Hemoglobin 29.9 pg (27.0-33.0); Mean Corpuscular Volume 92.3 fL (80-95); Mean Platelet Volume 9.5 fL (8.0-11.0); Neutrophils % 87.6; Platelet Count 276 x1000/uL (130-400); RBC 4.78 m/cumm (4.50-6.00)
[2019-06-29 14:40] LABS: Iron 107 ug/dL (65-175); Total Iron Binding Capacity 349 ug/dL (250-450); Transferrin Sat 31 % (20-55)
[2019-06-29 14:44] LABS: ESR 4 mm/hr (1-20)
[2019-06-29 14:54] LABS: ALT 95 U/L (16-63); AST 38 U/L (15-37); Albumin 4.4 g/dL (3.4-5.0); Alkaline Phosphatase 62 U/L (46-116); Anion Gap 9.9 mmol/L (3-11); BUN 20 mg/dL (7-18); Bilirubin, Total 0.5 mg/dL (0.2-1.0); CO2 31.1 mmol/L (21.0-32.0); CREATININE 1.04 mg/dL (0.70-1.30); Calcium 9.5 mg/dL (8.5-10.1); Chloride 102 mmol/L (98-107); Ferritin 84 ng/mL (26-388); Glucose 122 mg/dL (74-106); Potassium 3.9 mmol/L (3.5-5.1); Sodium 143 mmol/L (136-145); Total Protein 7.5 g/dL (6.4-8.2)
[2019-06-29 15:24] LABS: C-Reactive Protein < 0.05 mg/dL (0.0-0.3)
== END 2019-06-29 13:53 ==
PROVIDERS: PCP Nurse Practitioner Family; Visit Provider Internal Medicine Rheumatology
DX: D50.9 Iron deficiency anemia, unspecified (principal); M35.3 Polymyalgia rheumatica
CPT/HCPCS: 36415; 80053; 85652; 82728; 83540; 83550; 85025; 86140

== ENCOUNTER 2020-01-11 04:02 | Outpatient (CLI) | payer MEDICARE, SELFPAY ==
[2020-01-11 15:24] LABS: Abs Immature Grans 0.05 k/cumm (0.0-0.09); Absolute Basophil Count 0.01 k/cumm (0.0-0.2); Absolute Lymphocyte Count 0.54 k/cumm (1.2-3.4); Absolute Monocyte Count 0.16 k/cumm (0.11-0.7); Absolute Neutrophil Count 8.89 k/cumm (1.2-6.7); Basophils % 0.1; HCT 44.7 % (40.0-50.0); HGB 14.8 g/dL (13.5-17.5); Immature Grans % 0.5 %; Lymphocytes % 5.6; Mean Corp. HGB Concentration 33.1 g/dL (32.0-36.0); Mean Corpuscular Hemoglobin 30.6 pg (27.0-33.0); Mean Corpuscular Volume 92.4 fL (80-95); Mean Platelet Volume 9.5 fL (8.0-11.0); Monocytes % 1.7; Neutrophils % 92.1; Platelet Count 259 x1000/uL (130-400); RBC 4.84 m/cumm (4.50-6.00); RBC Distribution Width 14.1 % (11.8-14.1); White Blood Cell Count 9.65 k/cumm (4.4-10.8)
[2020-01-11 15:35] LABS: Bilirubin Negative (Negative); Blood Negative (Negative); Clarity Clear (Clear); Glucose Negative (Negative); Ketones Negative (Negative); Leukocyte Esterase Negative (Negative); Nitrite Negative (Negative); Specific Gravity 1.015 (1.005-1.025); Urobilinogen 0.2 EU/dL (Up TO 0.2); pH 5.5 (5-8)
[2020-01-11 16:14] LABS: ESR 7 mm/hr (1-20)
[2020-01-11 17:28] LABS: ALT 55 U/L (16-63); AST 21 U/L (15-37); Albumin 3.8 g/dL (3.4-5.0); Alkaline Phosphatase 54 U/L (46-116); Anion Gap 8.8 mmol/L (3-11); BUN 22 mg/dL (7-18); Bilirubin, Total 0.3 mg/dL (0.2-1.0); CO2 28.2 mmol/L (21.0-32.0); CREATININE 1.04 mg/dL (0.70-1.30); Chloride 102 mmol/L (98-107); Glucose 160 mg/dL (74-106); Potassium 3.9 mmol/L (3.5-5.1); Sodium 139 mmol/L (136-145); Total Protein 6.6 g/dL (6.4-8.2)
[2020-01-11 17:32] LABS: C-Reactive Protein < 0.05 mg/dL (0.0-0.3)
[2020-01-13 10:27] LABS: Myeloperoxidase Ab IgG <0.2 U; Proteinase 3 Ab (PR3) <0.2 U
[2020-01-13 12:54] LABS: ANCA Interpretation Negative (Negative)
== END 2020-01-11 04:22 ==
PROVIDERS: PCP Nurse Practitioner Family; Visit Provider Internal Medicine Rheumatology
DX: M31.5 Giant cell arteritis with polymyalgia rheumatica (principal); Z79.899 Other long term (current) drug therapy
CPT/HCPCS: 36415; 80053; 85652; 86255; 81003; 82955; 83516; 85025; 86140

== ENCOUNTER 2020-01-30 16:41 | Outpatient (REF) | payer MEDICARE, SELFPAY ==
[2020-01-30 21:17] LABS: Abs Immature Grans 0.07 k/cumm (0.0-0.09); Absolute Basophil Count 0.01 k/cumm (0.0-0.2); Absolute Lymphocyte Count 0.49 k/cumm (1.2-3.4); Absolute Monocyte Count 0.26 k/cumm (0.11-0.7); Absolute Neutrophil Count 8.86 k/cumm (1.2-6.7); Basophils % 0.1; HCT 44.1 % (40.0-50.0); HGB 14.2 g/dL (13.5-17.5); Immature Grans % 0.7 %; Lymphocytes % 5.1; Mean Corp. HGB Concentration 32.2 g/dL (32.0-36.0); Mean Platelet Volume 10.4 fL (8.0-11.0); Monocytes % 2.7; Neutrophils % 91.4; Platelet Count 262 x1000/uL (130-400); RBC 4.74 m/cumm (4.50-6.00); RBC Distribution Width 14.4 % (11.8-14.1); White Blood Cell Count 9.69 k/cumm (4.4-10.8)
[2020-01-30 21:28] LABS: ALT 32 U/L (16-63); AST 13 U/L (15-37); Albumin 3.6 g/dL (3.4-5.0); Alkaline Phosphatase 62 U/L (46-116); Anion Gap 10.1 mmol/L (3-11); BUN 24 mg/dL (7-18); Bilirubin, Total 0.3 mg/dL (0.2-1.0); C-Reactive Protein 0.06 mg/dL (0.0-0.3); CO2 25.9 mmol/L (21.0-32.0); CREATININE 0.91 mg/dL (0.70-1.30); Chloride 104 mmol/L (98-107); Glucose 149 mg/dL (74-106); Lipase 199 U/L (73-393); NT-proBNP 39 pg/mL (<300); Potassium 4.4 mmol/L (3.5-5.1); Sodium 140 mmol/L (136-145); TSH (W/Ref FT4) 0.76 uIU/mL (0.36-3.74); Total Protein 6.3 g/dL (6.4-8.2)
[2020-01-30 22:07] LABS: ESR 10 mm/hr (1-20)
== END 2020-01-30 17:01 ==
LOC: NCHCN 16:41
PROVIDERS: PCP Nurse Practitioner Family; Visit Provider Internal Medicine
DX: R53.1 Weakness (principal); R53.81 Other malaise; R06.00 Dyspnea, unspecified; R63.4 Abnormal weight loss; R11.0 Nausea; K59.00 Constipation, unspecified
CPT/HCPCS: 80053; 83690; 85652; 83880; 84443; 85025; 86140

== ENCOUNTER 2020-02-15 02:24 | Outpatient (CLI) | payer MEDICARE, SELFPAY ==
--- NOTE | 2020-02-15 | DI.CT_ITS ---
EXAM: CT ABDOMEN PELVIS W CLINICAL HISTORY: EPIGASTRIC PAIN,R10.13,UNINTENTIONAL WT LOSS,R63.4,NAUSEA TECHNIQUE: Imaging Protocol: Axial computed tomography images with coronal and sagittal reformatted images were created and reviewed CONTRAST MATERIAL: Intravenous: Omnipaque 350 Contrast volume:100 mL Oral: Yes COMPARISON: CT ABD PELVIS WITH CONTRAST from 03/05/2015 FINDINGS: ABDOMEN: Lung Bases: Parenchymal scarring. No acute abnormality. Liver: Normal density. No measurable mass. Portal, Superior Mesenteric, and Splenic Veins: Unremarkable. Gallbladder and Biliary Tract: No radiodense calculus or dilation. Pancreas: Normal density, no abnormal calcifications or inflammatory process. Spleen: Normal. Adrenals: No masses seen. Kidneys: Normal size, contour and axis. No radiodense stones or obstructive uropathy. There are few t iny hypodensities in the kidneys. They are too small for further characterization but likely reflect small cysts. Abdominal Aorta: Abdominal portion non-dilated. Atherosclerosis. Bowel: No obstruction or bowel wall thickening. There is a normal appendix. There is a large amount of retained stool suggesting constipation. Peritoneal Cavity: No collection or mesenteric inflammatory response. Trace amount of free fluid in t he pelvis. Lymph Nodes: Within normal limits. Bones: Unremarkable. Soft Tissues: Unremarkable. PELVIS: Bladder: Symmetric distention, no gross wall thickening. Reproductive Organs: Unremarkable as visualized. Lymph Nodes: Within normal limits. Bones: Within normal limits. IMPRESSION: 1. Constipation. 2. No acute abdominal or pelvic process. RADIATION DOSE DELIVERED: Total DLP DATA REPOSITORY: All CT scans at this facility are submitted to the National Radiology Data Registry (NRDR) Dose Index Registry (DIR) with the [employer] (ACR). RADIATION OPTIMIZATION: All CT scans at this facility use at least one of these dose optimization te chniques: automated exposure control; mA and/or kV adjustment per patient size (includes targeted exa ms where dose is matched to clinical indication); or iterative reconstruction.
[2020-02-15] MEDS: Normal Saline - Diluent 50 ML VIAL IV (09:41)
[2020-02-15] MEDS: Normal Saline Flush 10 ML SYR IVP (09:42)
[2020-02-15] MEDS: Omnipaque 350 MG/ML 100 ML BTL IJ (09:42)
[2020-02-15] MEDS: Omnipaque 350 MG/ML 50 ML BTL PO (09:54)
== END 2020-02-15 02:44 ==
PROVIDERS: PCP Nurse Practitioner Family; Visit Provider Internal Medicine
DX: R10.13 Epigastric pain (principal); R63.4 Abnormal weight loss; R11.0 Nausea; K59.00 Constipation, unspecified; I70.0 Atherosclerosis of aorta; J98.4 Other disorders of lung; R93.421 Abnormal radiologic findings on diagnostic imaging of right kidney; R93.422 Abnormal radiologic findings on diagnostic imaging of left kidney
CPT/HCPCS: 74177; J3490; Q9967

== ENCOUNTER 2020-03-27 04:42 | Outpatient (CLI) | payer MEDICARE, SELFPAY ==
[2020-03-28 15:36] LABS: Scl 70 Antibodies, IgG <0.2 U
== END 2020-03-27 05:02 ==
PROVIDERS: PCP Nurse Practitioner Family; Visit Provider Nurse Practitioner Family
DX: R11.0 Nausea (principal); R63.0 Anorexia; R14.0 Abdominal distension (gaseous); Z87.898 Personal history of other specified conditions; K59.00 Constipation, unspecified; K58.1 Irritable bowel syndrome with constipation
CPT/HCPCS: 36415; 82533; 86235

== ENCOUNTER 2020-06-19 16:51 | Outpatient (REF) | payer MEDICARE, SELFPAY ==
[2020-06-23 14:37] LABS: Patient Race White; SARS-CoV-2 RNA Undetected (Undetected); SARS-CoV-2 Specimen Source Nasal
== END 2020-06-19 17:11 ==
LOC: NCHCN 16:51
PROVIDERS: PCP Nurse Practitioner Family; Visit Provider Internal Medicine
DX: Z20.828 Contact with and (suspected) exposure to other viral communicable diseases (principal)
CPT/HCPCS: U0003

== ENCOUNTER 2020-09-20 17:13 | Outpatient (REF) | payer MEDICARE, SELFPAY ==
[2020-09-21 14:49] LABS: COVID-19 RT-PCR UVMMC Result Negative (Negative)
== END 2020-09-20 17:14 | disposition home or self-care (01) ==
LOC: NCHCN 17:13
PROVIDERS: PCP Nurse Practitioner Family; Visit Provider Nurse Practitioner Family
DX: Z20.822 Contact with and (suspected) exposure to COVID-19 (principal)
CPT/HCPCS: U0003; U0005

== ENCOUNTER 2020-09-27 20:59 | Outpatient (REF) | payer MEDICARE, SELFPAY ==
[2020-09-27 21:10] LABS: HCT 41.2 % (40.0-50.0); HGB 13.1 g/dL (13.5-17.5); MCH 30.3 pg (27.0-33.0); MCHC 31.8 % (32.0-36.0); MCV 95.2 fL (80-95); MPV 10.1 fL (8.0-11.0); Platelet Count 255 10^3/uL (130-400); RBC 4.33 10^6/uL (4.36-5.78); RDW 13.3 % (11.8-14.1); RDW-SD 47.3 fL; WBC 7.71 10^3/uL (4.4-10.8)
[2020-09-27 21:18] LABS: Anion Gap 7.4 mmol/L (3-11); BUN 22 mg/dL (7-18); CO2 29.6 mmol/L (21.0-32.0); Chloride 106 mmol/L (98-107); Glucose 100 mg/dL (74-106); Potassium 4.5 mmol/L (3.5-5.1); Sodium 143 mmol/L (136-145)
== END 2020-09-27 21:00 | disposition home or self-care (01) ==
LOC: NCHCN 20:59
PROVIDERS: PCP Nurse Practitioner Family; Visit Provider Nurse Practitioner Family
DX: R53.81 Other malaise (principal)
CPT/HCPCS: 80048; 85027

== ENCOUNTER → 2020-11-21 11:07 | Outpatient (BNVA) | payer MEDICARE, SELFPAY | PROVIDERS: PCP Nurse Practitioner Family; Referring Provider Nurse Practitioner Family; Visit Provider Nurse Practitioner Gerontology | DX: N40.0 Benign prostatic hyperplasia without lower urinary tract symptoms (principal); R35.0 Frequency of micturition | CPT/HCPCS: 81003; 99215; G2212 ==

== ENCOUNTER 2020-11-23 02:43 | Outpatient (CLI) | payer MEDICARE, SELFPAY ==
[2020-11-23 17:06] LABS: PSA, Screening 1.1 ng/mL (0.0-6.5)
== END 2020-11-23 02:44 | disposition home or self-care (01) ==
LOC: LBO 02:44
PROVIDERS: PCP Nurse Practitioner Family; Visit Provider Nurse Practitioner Gerontology
DX: N40.1 Benign prostatic hyperplasia with lower urinary tract symptoms (principal); Z12.5 Encounter for screening for malignant neoplasm of prostate
CPT/HCPCS: 36415; 84153

== ENCOUNTER → 2021-01-01 13:07 | Outpatient (BNVA) | payer MEDICARE, SELFPAY | PROVIDERS: PCP Nurse Practitioner Family; Referring Provider Nurse Practitioner Family; Visit Provider Nurse Practitioner Gerontology | DX: N40.1 Benign prostatic hyperplasia with lower urinary tract symptoms (principal); R39.198 Other difficulties with micturition | CPT/HCPCS: 99214 ==

== ENCOUNTER 2021-01-12 16:35 | Emergency (ER) | payer MEDICARE, SELFPAY ==
[2021-01-12 16:41] VITALS: BP 110/59; PULSE 87; TEMP 36.4; O2SAT 99
--- NOTE | 2021-01-12 16:45 | DI.RAD_ITS ---
Exam(s) XR FOREARM LT EXAM: XR FOREARM LT CLINICAL HISTORY: mid forearm pain after puncture wound. TECHNIQUE: 2D digital imaging was performed. COMPARISON: No exams were available for comparison FINDINGS: There is soft tissue laceration in the forearm. No radiopaque foreign body evident. No evidence of fracture nor dislocation. IMPRESSION: DATA REPOSITORY: RADIATION DOSE DELIVERED:
--- NOTE | 2021-01-12 17:08 | ED.GENADUL_ITS ---
Discharge Plan Disposition Patient Disposition: HOME Condition: Improving Discharge Details Clinical Impression: Laceration of forearm, left Primary Care Provider: Rita Purcell ED Provider: Alexi Evans Home Meds and New Rx's Prescriptions: Continued dextroamphetamine-amphetamine [Adderall] 10 mg tablet 10 mg PO DAILY RF: 0 omeprazole 20 mg capsule,delayed release(DR/EC) 20 mg PO DAILY RF: 0 tamsulosin [Flomax] 0.4 mg capsule 0.4 mg PO DAILY Qty: 90 RF: 1 ascorbic acid (vitamin C) [Vitamin C] 500 MG tablet 1,000 mg PO DAILY RF: 0 multivitamin 1 EACH capsule 1 ea PO DAILY RF: 0 cholecalciferol (vitamin D3) 1,000 UNIT capsule 1,000 unit PO DAILY RF: 0 lorazepam 2 mg tablet 2 mg PO TID PRN (Reason: anxiety) Qty: 3 RF: 0 promethazine 12.5 mg tablet 12.5 mg PO .3 am PRNRF: 0 bupropion HCl 100 mg tablet 150 mg PO DAILY RF: 0 Adult Probiotic 3 billion cell capsule 3,000 mmu cells PO DAILY PRNRF: 0 prednisone 10 mg tablet 9 mg PO DAILY RF: 0 famotidine 10 mg Tablet PO QAM RF: 0 Discharge Instructions Instructions: Laceration (ED) Additional Instructions: Please leave splint in place until seen by orthopedics. Please call the orthopedic office at [phone] on Thursday for an appointment time. May use the provided oxycodone as needed for severe/breakthrough pain. Return to the emergency room for any acute concerns. Medical Decision Making This is a 70-year-old male who presents from home after puncturing his left forearm with a knife while opening a package. Did not have numbness or weakness. His last tetanus was updated in 2013. Referred for x-ray to rule out foreign object. Patient anesthetized, wound examined in a bloodless field without evidence of foreign body. There is a retraction of the muscle belly present in the wound. Wound was closed with interrupted sutures. I placed the patient in a forearm volar splint and will h ave him follow-up in orthopedic clinic given question of wrist flexor muscle belly injury. Patient did request additional analgesia for home. Is given small number of analgesics for home use. HPI General Mode of arrival: ambulatory . Date/Time Provider Initiated Documentation: 01/12/21 16:36 . Limitations to Documentation: no limitations . Information obtained by: patient . History of Present Illness 70 year old M presents to the emergency department with the chief complaint of Laceration left forearm, Quality is described as dull and constant, and is localized to the left and upper extremity. Patient reports no radiation. Patient started experiencing this hour(s) and it has been constant. No relieving factors improve symptom(s), No exacerbating factors reported . Patient did receive the following treatments prior to arrival, none Related Data Home Medications Medication Instructions Recorded Confirmed ascorbic acid (vitamin C) [Vitamin 1,000 mg PO DAILY NS 08/29/13 01/12/21 C] cholecalciferol (vitamin D3) 1,000 unit PO DAILY NS 08/29/13 01/12/21 multivitamin 1 ea PO DAILY NS 08/29/13 01/12/21 omeprazole 20 mg capsule,delayed 20 mg PO DAILY 01/03/19 01/01/21 release lorazepam 2 mg tablet 2 mg PO TID PRN #3 tab 10/08/19 01/12/21 bupropion HCl 100 mg tablet 150 mg PO DAILY tab 10/04/20 01/12/21 lactobacillus combination no.8 3 3,000 mmu cells PO DAILY PRN 10/04/20 01/12/21 billion cell capsule prednisone 10 mg tablet 9 mg PO DAILY 10/04/20 01/12/21 promethazine 12.5 mg tablet 12.5 mg PO .3 am PRN tab 10/04/20 01/12/21 dextroamphetamine-amphetamine 10 10 mg PO DAILY 11/21/20 01/12/21 mg tablet tamsulosin 0.4 mg capsule 0.4 mg PO DAILY #90 cap 01/01/21 01/12/21 famotidine mg PO QAM 01/12/21 Previous Rx's Medication Instructions Recorded lorazepam 2 mg tablet 2 mg PO TID PRN #3 tab 10/08/19 tamsulosin 0.4 mg capsule 0.4 mg PO DAILY #90 cap 01/01/21 Allergies Allergy/AdvReac Type Severity Reaction Status Date / Time sulfamethoxazole Allergy Intermediate Hives Verified 01/12/21 16:45 [From Bactrim] trimethoprim [From Bactrim] Allergy Intermediate Hives Verified 01/12/21 16:45 doxepin AdvReac Mild keeps pt. Verified 01/12/21 16:45 awake chlorpheniramine polistirex AdvReac hallucinati Unverified 01/12/21 16:45 [From Tussionex] ons hydrocodone polistirex AdvReac hallucinati Unverified 01/12/21 16:45 [From Tussionex] ons MIRTAZEPINE Allergy Mild Uncoded 01/12/21 16:45 General Stated Complaint: Laceration ROCHELLE: 3 Review of Systems Narrative: Bleeding controlled with pressure at home. No numbness or tingling. No weakness. 4 systems reviewed and otherwise, negative last tetanus in 2012 [facility] Medical History Acute constipation Anxiety Atypical chest pain BPH (benign prostatic hyperplasia) Cerebrovascular small vessel disease Delayed gastric emptying Depression Depression with anxiety Dyspepsia Dysphagia Dysuria Epigastric pain Fatigue Headaches due to 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 History of exposure to infectious disease Hyperlipidemia Insomnia Intermittent palpitations Knee pain, left Malaise Malaise and fatigue Migraine with aura Nausea Perennial allergic rhinitis Polymyalgia rheumatica PSVT (paroxysmal supraventricular tachycardia) Pulmonary hyperinflation Seborrheic keratoses Snoring Temporal arteritis Tinnitus Underweight Unintentional weight loss Weakness Social History Smoking/Tobacco Use Status: Former Tobacco Use Smoking risk assessment performed?: Yes Drug use: Never Substance use type: does not use Do you feel safe at home: Yes Do you feel safe in your relationship?: Yes Exam Narrative Exam Narrative: GEN: awake, alert, oriented 3. Pleasant, well groomed, interactive. HEAD: Normocephalic, atraumatic ENT: External ear exam unremarkable EYES: PERRL, EOMI NECK: Full ROM, no STEFFANIE, no menigismus CHEST/RESP: No respiratory distress EXT: Full ROM, left mid volar forearm with approximately 2 x 2 centimeter puncture wound. 2+ radial pulse bilaterally. Distal motor function intact. Neuro: Grossly normal neurologic exam, conversant, interactive. Psych: Speech fluent, thoughts congruent, affect normal Course Vital Signs Vital signs: Vital Signs Temperature 36.4 C L 01/12/21 16:41 Pulse 87 01/12/21 16:41 Blood Pressure 110/59 L 01/12/21 16:41 Pulse Oximetry 99 01/12/21 16:41 Temperature 36.4 C L 01/12/21 16:41 Temperature Source Temporal Artery Scan 01/12/21 16:41 Pulse 87 01/12/21 16:41 Respiratory Effort Non-Labored 01/12/21 16:43 Blood Pressure 110/59 L 01/12/21 16:41 Blood Pressure Position Sitting 01/12/21 16:41 Pulse Oximetry 99 01/12/21 16:41 Oxygen Delivery Method Room Air 01/12/21 16:41 Oxygen Flow Rate 0 01/12/21 16:41 Pain Level 4 01/12/21 16:50 Procedures Laceration Laceration 1: Site: upper extremity Side (If applicable): left Size (cm): 4 Description: linear Depth: involves muscle layer Local Anesthetic: Lidocaine 1% Amount of anesthesia used (mL): 3 Pre-repair: wound explored and irrigated extensively Skin layer closed with: nylon Size (cm): 4-0 Number of sutures: 5
--- NOTE | 2021-01-12 17:29 | DI.VRAD_ITS ---
PROCEDURE INFORMATION: Exam: XR Left Forearm Exam date and time: 01/12/2021 4:49 PM Age: 70 years old Clinical indication: Pain; Lower or forearm; Left; Patient HX: PT stabbed himself with pocket knife accidentally, unable to fully extend his arm. TECHNIQUE: Imaging protocol: XR Left forearm. Views: 2 views. COMPARISON: No relevant prior studies available. FINDINGS: Bones/joints: There is no evidence of acute fracture. There is no evidence of joint malalignment or dislocation. Soft tissues: There are no soft tissue masses or fluid collections. Soft tissue laceration noted along the forearm. No evidence of radiopaque foreign body. IMPRESSION: 1. No evidence of acute fracture. 2. No evidence of acute dislocation. 3. Soft tissue laceration noted along the forearm. 4. No evidence of radiopaque foreign body. Dictated and Authenticated by: Andre Jeter MD. Ordering:MIR Truong MD
== END 2021-01-12 18:32 | disposition home or self-care (01) ==
PROVIDERS: Emergency Provider Emergency Medicine; PCP Nurse Practitioner Family
DX: S51.812A Laceration without foreign body of left forearm, initial encounter (principal); W26.0XXA Contact with knife, initial encounter
CPT/HCPCS: 12002; 29125; 90471; 99282; 73090

== ENCOUNTER → 2021-01-24 14:05 | Outpatient (BNVA) | payer MEDICARE, SELFPAY | PROVIDERS: PCP Nurse Practitioner Family; Referring Provider Nurse Practitioner Family; Visit Provider Physician Assistant Surgical | DX: S51.812A Laceration without foreign body of left forearm, initial encounter (principal); W26.0XXA Contact with knife, initial encounter | CPT/HCPCS: 99213 ==

== ENCOUNTER → 2021-02-11 11:36 | Outpatient (BNVA) | payer MEDICARE, SELFPAY | PROVIDERS: PCP Nurse Practitioner Family; Referring Provider Nurse Practitioner Family; Visit Provider Student in an Organized Health Care Education/Training Program | DX: S51.812D Laceration without foreign body of left forearm, subsequent encounter (principal); X58.XXXD Exposure to other specified factors, subsequent encounter | CPT/HCPCS: 99214 ==

== ENCOUNTER → 2021-04-23 09:40 | Outpatient (BNVA) | payer MEDICARE, SELFPAY | PROVIDERS: PCP Nurse Practitioner Family; Referring Provider Nurse Practitioner Family; Visit Provider Nurse Practitioner Gerontology | DX: N40.1 Benign prostatic hyperplasia with lower urinary tract symptoms (principal); R35.0 Frequency of micturition; R35.1 Nocturia; R39.12 Poor urinary stream | CPT/HCPCS: 99213 ==

== ENCOUNTER → 2021-10-07 13:16 | Outpatient (BNVA) | payer MEDICARE, SELFPAY | PROVIDERS: PCP Nurse Practitioner Family; Referring Provider Chiropractor; Visit Provider Student in an Organized Health Care Education/Training Program | DX: M77.12 Lateral epicondylitis, left elbow (principal); S51.812D Laceration without foreign body of left forearm, subsequent encounter; X58.XXXD Exposure to other specified factors, subsequent encounter | CPT/HCPCS: 99213 ==

== ENCOUNTER 2021-10-10 20:16 | Outpatient (REF) | payer MEDICARE, SELFPAY ==
[2021-10-10 21:24] LABS: HCT 45.6 % (40.0-50.0); HGB 14.4 g/dL (13.5-17.5); MCH 29.1 pg (27.0-33.0); MCHC 31.6 % (32.0-36.0); MCV 92.3 fL (80-95); MPV 10.1 fL (8.0-11.0); Platelet Count 263 10^3/uL (130-400); RBC 4.94 10^6/uL (4.36-5.78); RDW 13.8 % (11.8-14.1); RDW-SD 46.4 fL; WBC 7.46 10^3/uL (4.4-10.8)
[2021-10-10 21:48] LABS: ALT 57 U/L (16-63); AST 23 U/L (15-37); Albumin 4.3 g/dL (3.4-5.0); Alkaline Phosphatase 65 U/L (46-116); Anion Gap 7.2 mmol/L (3-11); BUN 20 mg/dL (7-18); Bilirubin, Total 0.4 mg/dL (0.2-1.0); CO2 30.8 mmol/L (21.0-32.0); Calcium 9.7 mg/dL (8.5-10.1); Chloride 106 mmol/L (98-107); Glucose 99 mg/dL (74-106); Potassium 4.5 mmol/L (3.5-5.1); Sodium 144 mmol/L (136-145); Total Protein 7.3 g/dL (6.4-8.2)
[2021-10-11 22:18] LABS: PSA, Screening 1.3 ng/mL (0.0-6.5)
== END 2021-10-10 20:17 | disposition home or self-care (01) ==
LOC: NCHCN 20:16
PROVIDERS: PCP Nurse Practitioner Family; Visit Provider Nurse Practitioner Family
DX: R63.6 Underweight (principal); Z12.5 Encounter for screening for malignant neoplasm of prostate
CPT/HCPCS: 80053; 84153; 85027

== ENCOUNTER 2021-10-21 01:11 | Outpatient (CLI) | payer MEDICARE, SELFPAY ==
--- NOTE | 2021-10-21 07:15 | DI.MRI_ITS ---
Exam(s) MR UPPER EXTREMITY LT WO CLINICAL HISTORY: PAIN, INJURY,LACERATION, S51.812A. TECHNIQUE: Multiplanar multisequence MRI Examination was performed. CONTRAST MATERIAL: Noncontrast. COMPARISON: Plain films 12 January 2021 FINDINGS: Bones: There is no fracture or contusion pattern. No bone marrow edema is present Musculotendinous structures: There is no muscular edema, or myositis. No muscular injury. There is a n encapsulated mainly fluid lesion seen deep to the skin and subcutaneous fat at the volar aspect of the mid forearm. It measures 2.3 cm in diameter by 2.8 cm in length. It is located adjacent to the neurovascular structures and deviates the anterior tendons. No definite tendon tear or intrinsic ten don abnormality. There is no significant subcutaneous edema although patient has very little subcutaneous fat. IMPRESSION: 2.8 centimeter encapsulated collection in the subcutaneous tissues the anterior forearm, presumed pos ttraumatic collection. DATA REPOSITORY:
== END 2021-10-21 01:31 ==
PROVIDERS: PCP Nurse Practitioner Family; Visit Provider Student in an Organized Health Care Education/Training Program
DX: M79.632 Pain in left forearm (principal); S51.812A Laceration without foreign body of left forearm, initial encounter; M79.89 Other specified soft tissue disorders
CPT/HCPCS: 73218

== ENCOUNTER 2021-12-02 01:15 | Outpatient (CLI) | payer MEDICARE, SELFPAY ==
[2021-12-02 11:18] LABS: Source Nasal/Nares
[2021-12-02 19:01] LABS: COVID-19 PCR Negative (Negative)
== END 2021-12-02 01:16 | disposition home or self-care (01) ==
LOC: LBO 01:15
PROVIDERS: PCP Nurse Practitioner Family; Visit Provider Student in an Organized Health Care Education/Training Program
DX: Z20.822 Contact with and (suspected) exposure to COVID-19 (principal); Z01.818 Encounter for other preprocedural examination
CPT/HCPCS: 87635; U0005

== ENCOUNTER 2021-12-03 12:34 | Day surgery (SDC) | payer MEDICARE, SELFPAY ==
[2021-12-03 13:13] VITALS: BP 103/74; PULSE 89; RESP 16; TEMP 36.6; O2SAT 100
[2021-12-03] MEDS: Lactated Ringers 1,000 ML 80 ML IV (13:50)
--- NOTE | 2021-12-03 13:57 | HPE_ITS ---
Documented by User: GINNY Francisco 12/03/21 14:06 Assessment and Plan Assessment and plan (1) Mass of left forearm: Status: Acute Assessment and plan: Excisional biopsy left forearm. Details of surgery were discussed with patient as well as risks and pertinent anatomy. All questions were answered. History of Present Illness History of Present Illness Chief Complaint: L arm mass Narrative: Tate is a 71-year-old male who comes in today for excisional biopsy of the mass of his left forearm. This mass seems to have originated from an injury that he sustained approximately 1 year ago on 01/12/2021 in which she suffered a laceration over his left forearm. Since then he has developed a mass on his left forearm which is painful whenever he tries to use his arm. He has also noted some exacerbated numbness or tingling. An MRI of the left forearm revealed an encapsulated fluid-filled mass in that area. Since he has failed conservative treatment, he elects to move forward with an excisional biopsy of the mass and is anxious to proceed. Review of Systems Constitutional Constitutional: Denies fever(s) ENT Ears, Nose, Mouth, and Throat: Denies dizziness and Denies sore throat Cardiovascular Cardiovascular: Denies chest pain, Denies palpitations and Denies dyspnea Respiratory Respiratory: Denies cough and Denies dyspnea Gastrointestinal Gastrointestinal: Denies abdominal pain, Denies melena, Denies hematochezia, Denies diarrhea, Denies nausea and Denies vomiting Genitourinary Genitourinary: Denies hematuria and Denies dysuria Neurologic Neurologic: Denies dizziness Endocrine Endocrine: Denies palpitations PFSH All Active Problems (Updated 12/03/21 @ 14:03 by GINNY Francisco) BPH (benign prostatic hyperplasia) (Chronic) Left lateral epicondylitis (Acute 12/17/15) Dyspepsia (Acute) Laceration of forearm, left (Acute) Mass of left forearm (Acute) S/P excisional biopsy: 12/03/2021 Medical History Acute constipation Anxiety Atypical chest pain Cerebrovascular small vessel disease Delayed gastric emptying Depression Depression with anxiety Dyspepsia Dysphagia Dysuria Epigastric pain Fatigue Headaches due to 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 History of exposure to infectious disease Hyperlipidemia Insomnia Intermittent palpitations Knee pain, left Malaise Malaise and fatigue Migraine with aura Nausea Perennial allergic rhinitis Polymyalgia rheumatica PSVT (paroxysmal supraventricular tachycardia) Pulmonary hyperinflation Seborrheic keratoses Snoring Temporal arteritis Tinnitus Underweight Unintentional weight loss Weakness Surgical History (Updated 12/03/21 @ 14:03 by GINNY Francisco) Hx of circumcision pt reports surgery during college Hx of colonoscopy Hx of inguinal hernia surgery Social History Smoking/Tobacco Use Status: Former Tobacco Use Quit Date: 07/27/73 Smoking risk assessment performed?: Yes Alcohol Intake: current Alcohol Intake frequency: a few times a month Alcohol type: beer Drug use: Daily Substance use type: marijuana Do you feel safe at home: Yes Do you feel safe in your relationship?: Yes Meds Allergies and Home Medications Allergies Allergy/AdvReac Type Severity Reaction Status Date / Time sulfamethoxazole Allergy Intermediate Hives Verified 12/03/21 12:59 [From Bactrim] trimethoprim [From Bactrim] Allergy Intermediate Hives Verified 12/03/21 12:59 mirtazapine Allergy Mild unknown Unverified 12/03/21 12:59 doxepin AdvReac Mild keeps pt. Verified 12/03/21 12:59 awake chlorpheniramine polistirex AdvReac hallucinati Unverified 12/03/21 12:59 [From Tussionex] ons hydrocodone polistirex AdvReac hallucinati Unverified 12/03/21 12:59 [From Tussionex] ons Home Medications Medication Instructions Recorded Confirmed Type Vitamin C 500 mg tablet (ascorbic 1,000 mg PO DAILY NS 08/29/13 12/03/21 History acid (vitamin C)) cholecalciferol (vitamin D3) 25 1,000 unit PO DAILY NS 08/29/13 12/03/21 History mcg (1,000 unit) capsule multivitamin 1 ea PO DAILY NS 08/29/13 12/03/21 History lorazepam 2 mg tablet 2 mg PO TID PRN #3 tab 10/08/19 12/03/21 Rx bupropion HCl 100 mg tablet 150 mg PO DAILY tab 10/04/20 12/03/21 History lactobacillus combination no.8 3 3,000 mmu cells PO DAILY PRN 10/04/20 12/03/21 History billion cell capsule (Adult Probiotic) prednisone 10 mg tablet 5 mg PO DAILY tab 01/24/21 12/03/21 History tamsulosin 0.4 mg capsule (Flomax) 0.4 mg PO DAILY #90 cap 04/23/21 12/03/21 Rx acetaminophen 500 mg tablet 1,000 mg PO TID #90 tab 12/03/21 Rx hydrocodone 5 mg-acetaminophen 325 1 tab PO Q6H PRN #3 tab 12/03/21 Rx mg tablet ibuprofen 600 mg tablet 600 mg PO TID PRN #90 tab 12/03/21 Rx Exam Const General: cooperative and no acute distress Orientation: alert and awake [facility] Head: normocephalic and atraumatic Eyes Conjunctivae: conjunctivae normal Sclera: sclerae normal Resp Effort & Inspection: normal respiratory effort Auscultation: clear to auscultation bilaterally and no wheezes Cardio Rate: regular rate Rhythm: regular rhythm Heart Sounds: S1 normal, S2 normal and no murmurs Results Last Vital Signs Temp 97.9 F 12/03/21 13:13 Pulse 89 12/03/21 13:13 Resp 16 12/03/21 13:13 BP 103/74 12/03/21 13:13 Pulse Ox 100 12/03/21 13:13 Documented by User: Pablo Tadeo MD 12/03/21 15:04 Assessment and Plan Assessment and plan (1) Mass of left forearm: Status: Acute Assessment and plan: Excisional biopsy left forearm. Details of surgery were discussed with patient as well as risks and pertinent anatomy. All questions were answered. I interviewed and examined the patient with Rex Carrasquillo PA-C. I agree with the documentation as above. The assessment and plan were formulated with my direct involvement. Tate is a 71-year-old who has a mass about the left forearm which appears to be a hematoma from previous muscle laceration. It has become larger and is actually causing some symptoms against the median nerve as well as dysfunction with use of the left arm. Given the failure to resolve on its own I have offered excisional biopsy of this mass about the left forearm. Reviewed the risk of the procedure to include bleeding, infection, pain, stiffness, damage to nerves and vessels, recurrence, need for repeat procedures. Despite these risk, he elects to proceed. Pablo Tadeo MD FAAOS FAAHKS PFSH All Active Problems (Updated 12/03/21 @ 14:03 by GINNY Francisco) BPH (benign prostatic hyperplasia) (Chronic) Left lateral epicondylitis (Acute 12/17/15) Dyspepsia (Acute) Laceration of forearm, left (Acute) Mass of left forearm (Acute) S/P excisional biopsy: 12/03/2021 Medical History Acute constipation Anxiety Atypical chest pain Cerebrovascular small vessel disease Delayed gastric emptying Depression Depression with anxiety Dyspepsia Dysphagia Dysuria Epigastric pain Fatigue Headaches due to 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 History of exposure to infectious disease Hyperlipidemia Insomnia Intermittent palpitations Knee pain, left Malaise Malaise and fatigue Migraine with aura Nausea Perennial allergic rhinitis Polymyalgia rheumatica PSVT (paroxysmal supraventricular tachycardia) Pulmonary hyperinflation Seborrheic keratoses Snoring Temporal arteritis Tinnitus Underweight Unintentional weight loss Weakness Surgical History (Updated 12/03/21 @ 14:03 by GINNY Francisco) Hx of circumcision pt reports surgery during college Hx of colonoscopy Hx of inguinal hernia surgery Social History Smoking/Tobacco Use Status: Former Tobacco Use Quit Date: 07/27/73 Smoking risk assessment performed?: Yes Alcohol Intake: current Alcohol Intake frequency: a few times a month Alcohol type: beer Drug use: Daily Substance use type: marijuana Do you feel safe at home: Yes Do you feel safe in your relationship?: Yes Meds Allergies and Home Medications Allergies Allergy/AdvReac Type Severity Reaction Status Date / Time sulfamethoxazole Allergy Intermediate Hives Verified 12/03/21 12:59 [From Bactrim] trimethoprim [From Bactrim] Allergy Intermediate Hives Verified 12/03/21 12:59 mirtazapine Allergy Mild unknown Unverified 12/03/21 12:59 doxepin AdvReac Mild keeps pt. Verified 12/03/21 12:59 awake chlorpheniramine polistirex AdvReac hallucinati Unverified 12/03/21 12:59 [From [facility]] ons hydrocodone polistirex AdvReac hallucinati Unverified 12/03/21 12:59 [From [facility]] ons Home Medications Medication Instructions Recorded Confirmed Type Vitamin C 500 mg tablet (ascorbic 1,000 mg PO DAILY NS 08/29/13 12/03/21 History acid (vitamin C)) cholecalciferol (vitamin D3) 25 1,000 unit PO DAILY NS 08/29/13 12/03/21 History mcg (1,000 unit) capsule multivitamin 1 ea PO DAILY NS 08/29/13 12/03/21 History lorazepam 2 mg tablet 2 mg PO TID PRN #3 tab 10/08/19 12/03/21 Rx bupropion HCl 100 mg tablet 150 mg PO DAILY tab 10/04/20 12/03/21 History lactobacillus combination no.8 3 3,000 mmu cells PO DAILY PRN 10/04/20 12/03/21 History billion cell capsule (Adult Probiotic) prednisone 10 mg tablet 5 mg PO DAILY tab 01/24/21 12/03/21 History tamsulosin 0.4 mg capsule (Flomax) 0.4 mg PO DAILY #90 cap 04/23/21 12/03/21 Rx acetaminophen 500 mg tablet 1,000 mg PO TID #90 tab 12/03/21 Rx hydrocodone 5 mg-acetaminophen 325 1 tab PO Q6H PRN #3 tab 12/03/21 Rx mg tablet ibuprofen 600 mg tablet 600 mg PO TID PRN #90 tab 12/03/21 Rx
--- NOTE | 2021-12-03 14:16 | W.ANESPRE ---
General Info Date of Service Date Performed: 12/03/21 Height: 5 ft 11 in Weight: 56.699 kg Body Mass Index (BMI): 17.4 Surgical Procedure: Operation Date: 12/03/21 17:25 Proposed Procedure Side Surgeon p Excision Biopsy of Lt Arm Lesion Left Pablo Tadeo MD Meds Allergies and Home Medications Allergies Allergy/AdvReac Type Severity Reaction Status Date / Time sulfamethoxazole Allergy Intermediate Hives Verified 12/03/21 12:59 [From Bactrim] trimethoprim [From Bactrim] Allergy Intermediate Hives Verified 12/03/21 12:59 mirtazapine Allergy Mild unknown Unverified 12/03/21 12:59 doxepin AdvReac Mild keeps pt. Verified 12/03/21 12:59 awake chlorpheniramine polistirex AdvReac hallucinati Unverified 12/03/21 12:59 [From Tussionex] ons hydrocodone polistirex AdvReac hallucinati Unverified 12/03/21 12:59 [From Tussionex] ons Home Medication Medication Instructions Recorded Vitamin C 500 mg tablet (ascorbic 1,000 mg PO DAILY NS 08/29/13 acid (vitamin C)) cholecalciferol (vitamin D3) 25 1,000 unit PO DAILY NS 08/29/13 mcg (1,000 unit) capsule multivitamin 1 ea PO DAILY NS 08/29/13 lorazepam 2 mg tablet 2 mg PO TID PRN #3 tab 10/08/19 bupropion HCl 100 mg tablet 150 mg PO DAILY tab 10/04/20 lactobacillus combination no.8 3 3,000 mmu cells PO DAILY PRN 10/04/20 billion cell capsule (Adult Probiotic) prednisone 10 mg tablet 5 mg PO DAILY tab 01/24/21 tamsulosin 0.4 mg capsule (Flomax) 0.4 mg PO DAILY #90 cap 04/23/21 acetaminophen 500 mg tablet 1,000 mg PO TID #90 tab 12/03/21 hydrocodone 5 mg-acetaminophen 325 1 tab PO Q6H PRN #3 tab 12/03/21 mg tablet ibuprofen 600 mg tablet 600 mg PO TID PRN #90 tab 12/03/21 Current Visit Medications: Current Medications Generic Name Dose Route Start Last Admin Trade Name Freq PRN Reason Stop Dose Admin Ringer's Solution 1,000 mls @ 80 mls/hr 12/03/21 06:00 12/03/21 13:50 IV 01/01/22 23:59 80 mls/hr INFUSION KATHARINA Administration Cefazolin Sodium/Dextrose 2 gm in 50 mls @ 100 mls/hr 12/03/21 06:00 Ancef Duplex IVPB 01/01/22 23:59 PREOP KATHARINA IV Miscellaneous Supplies 1 each 12/03/21 06:00 Iv Access IV 01/01/22 23:59 DIRECTED KATHARINA Sodium Chloride 0 ml 12/03/21 06:00 Normal Saline Flush 10 Ml Syr IV 01/01/22 23:59 PRN PRN Sodium Chloride 0 ml 12/03/21 06:00 Normal Saline 10 Ml Vial IJ 01/01/22 23:59 DIRECTED PRN Sterile Water 0 ml 12/03/21 06:00 Water,Injection,Sterile 10 Ml Vial IJ 01/01/22 23:59 DIRECTED PRN PFSH Active Problems Active Problems: Problem Status Onset Code BPH (benign prostatic hyperplasia) N40.0 Left lateral epicondylitis 12/17/15 M77.12 Dyspepsia R10.13 Laceration of forearm, left S51.812A Mass of left forearm R22.32 Medical History Medical History Acute constipation Anxiety Atypical chest pain Cerebrovascular small vessel disease Delayed gastric emptying Depression Depression with anxiety Dyspepsia Dysphagia Dysuria Epigastric pain Fatigue Headaches due to 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 History of exposure to infectious disease Hyperlipidemia Insomnia Intermittent palpitations Knee pain, left Malaise Malaise and fatigue Migraine with aura Nausea Perennial allergic rhinitis Polymyalgia rheumatica PSVT (paroxysmal supraventricular tachycardia) Pulmonary hyperinflation Seborrheic keratoses Snoring Temporal arteritis Tinnitus Underweight Unintentional weight loss Weakness Medical History Comments:: Daily cannibus use; last 12/02/21; also takes peppermint/sary/fennel, 12/03/21 Surgical History Surgical History (Updated 12/03/21 @ 14:03 by GINNY Francisco) Hx of circumcision pt reports surgery during college Hx of colonoscopy Hx of inguinal hernia surgery Tobacco Smoking/Tobacco Use Status: Former Tobacco Use Alcohol Alcohol Intake: current Alcohol intake frequency: a few times a month Alcohol type: beer Substance Use Substance use: Daily Substance use type: marijuana Vital Signs and Lab Results Vital Signs Most Recent Vital Signs in EMR: Most Recent Vital Signs Temp Pulse Resp BP Pulse Ox 36.6 C 89 16 103/74 100 12/03/21 13:13 12/03/21 13:13 12/03/21 13:13 12/03/21 13:13 12/03/21 13:13 Lab Results Blood Type / Crossmatch: No Data to Display Complete Blood Count: No Data to Display Complete Metabolic Panel: No Data to Display Liver Function Panel: No Data to Display Coagulation Panel: No Data to Display Cardiac Panel: No Data to Display Arterial Blood Gas: No Data to Display Venous Blood Gas: No Data to Display Pancreas Panel: No Data to Display Thyroid Panel: No Data to Display Infectious Disease: Coronavirus (COVID-19)(PCR) Negative (Negative) 12/02/21 10:20 12/02/21 Coronavirus 2019 Source Nasal/Nares 12/02/21 10:20 12/02/21 Blood Cultures: No Data to Display Toxicology Panel: No Data to Display Imaging and Studies Imaging and Studies Study information below may be from another EMR and interpreted by another provider. Please see original notes in EMR for more complete details. Carotid Artery Summary:: MPRESSION: No evidence of hemodynamically significant cervical carotid artery stenosis. Pulmonary Function Summary: INTERPRETATION OF STUDY - Spirometry shows no evidence of obstructive airways disease. No bronchodilator response. LUNG VOLUMES - Lung volumes show no evidence of restriction. DIFFUSION CAPACITY - Normal. AIRWAY RESISTANCE - Normal. IMPRESSION - Normal pulmonary function study. Clinical correlation recommended. Anesthesia Assessment and Plan Anesthesia History Personal History: No History of Anesthesia Complications Family History: No Family History of Anesthesia Complications Exercise Tolerance Exercise Tolerance: Metabolic Equivalents>4 Cardiac & Pulmonary Exam Cardiac Exam: Normal S1/S2 Heart Sounds Pulmonary Exam: Clear Bilateral Breath Sounds Implantable Cardiac Device Does patient have a Pacemaker or an ICD?: No Airway Exam Known Difficult Airway: No Mallampati Class: 2 Mouth Opening: Normal (> 3cm) Thyromental Distance: Greater than 3 cm Neck Range of Motion: Full ROM Neck Circumference: Normal Teeth Condition: Normal Dentition ASA Classification ASA Score: ASA 2 Emergency Case?: No NPO Status NPO Status: NPO Clears >2 hours, Solids >8 hours Anesthesia Plan Resuscitation Status: Full Code Anesthesia Technique: General Anesthesia Airway Planned: Natural Airway Monitors Used: Standard Monitors
[2021-12-03 14:20] VITALS: BMI 17.4
--- NOTE | 2021-12-03 14:24 | W.PM.DSUDISC ---
Discharge Plan Disposition Patient Disposition: HOME Condition: Good Discharge Details Reason For Visit: Excision mass L forearm Attending Provider: Pablo Tadeo Primary Care Provider: Rita Purcell Home Meds and New Rx's Prescriptions: New acetaminophen 500 mg tablet 1,000 mg PO TID Qty: 90 0RF hydrocodone-acetaminophen 5-325 mg tablet 1 tab PO Q6H PRN (Reason: pain) Qty: 3 0RF ibuprofen 600 mg tablet 600 mg PO TID PRN (Reason: pain) Qty: 90 0RF Continued tamsulosin [Flomax] 0.4 mg capsule 0.4 mg PO DAILY Qty: 90 3RF ascorbic acid (vitamin C) [Vitamin C] 500 MG tablet 1,000 mg PO DAILY 0RF multivitamin 1 EACH capsule 1 ea PO DAILY 0RF cholecalciferol (vitamin D3) 1,000 UNIT capsule 1,000 unit PO DAILY 0RF lorazepam 2 mg tablet 2 mg PO TID PRN (Reason: anxiety) Qty: 3 0RF bupropion HCl 100 mg tablet 150 mg PO DAILY 0RF Rx Instructions: administer 6 hours apart Adult Probiotic 3 billion cell capsule 3,000 mmu cells PO DAILY PRN0RF Rx Instructions: administer with a meal prednisone 10 mg tablet 5 mg PO DAILY 0RF Discharge Instructions Additional Instructions: Excision Mass Discharge Instructions Activity: You should keep the hand elevated as much as possible for the first few days. You may use the fingers and hand as tolerated but avoid trying to do too much too soon. You may perform light activities. Dressing: You may keep your bandage in place for at least 3-4 days. This dressing is applying some pressure to the surgical site to prevent hematoma formation. You may remove it after 3 days and then cover with a large bandaid or gauze dressing. You may get the wound wet after 3 days. Medications: - You should take Tylenol and Ibuprofen for baseline pain control. - You have Hydrocodone for breakthrough pain. Follow-up: 7-10 days Stand Alone Forms: Anesthesia Discharge InstDonnell, Ashly Reynoso ([facility]) Referrals: Pablo Tadeo MD [ [facility] STAFF PHYSICIAN] - 12/13/21 11:00 am Equipment/Supplies: Sling Shower/Bathe:: 48 hours Diet:: As Tolerated Discharge Orders Discharge Orders: Discharge Order (Routine); Ordered 12/03/21 Ordered By: Rex Foreign DS: Diagnosis Discharge Diagnosis (1) Mass of left forearm: Status: Acute
[2021-12-03] MEDS: ceFAZolin 2 GM/50 ML BAG IVPB (15:06)
[2021-12-03] MEDS: Bupivacaine 0.5% Pres-Free W/EPI 10 ML VIAL (15:34)
[2021-12-03 16:20] VITALS: BP 95/62; PULSE 74; RESP 18; TEMP 36.3; O2SAT 100
--- NOTE | 2021-12-03 16:51 | W.ANESPOSTOP ---
Postoperative Evaluation Date, Time and Location Date Performed: 12/03/21 Time Performed: 16:51 Patient Location: Day Surgery Unit Vital Signs Most Recent Imported Vital Signs: Most Recent Vital Signs Temp Pulse Resp BP Pulse Ox 36.3 C L 74 18 95/62 L 100 12/03/21 16:20 12/03/21 16:20 12/03/21 16:20 12/03/21 16:20 12/03/21 16:20 Pain Score Most Recent Pain Score: Most Recent Pain Score Pain Level 0 12/03/21 16:20 Assessment Mental Status: Awake (Alert & Oriented to Patient Baseline) Airway and Respiratory Function: Patent airway with normal (patient baseline) respiratory exam Cardiovascular Function: Hemodynamically Stable Hydration Status: Adequately Hydrated Nausea & Vomiting: No Nausea or Vomiting Pain: Pt. Denies Any Pain Peripheral Nerve Block: Patient did not receive a nerve block
[2021-12-03 17:00] VITALS: BP 102/66; PULSE 72; RESP 16; TEMP 36.5; O2SAT 96
--- NOTE | 2021-12-03 21:10 | ROE_ITS ---
Date of service: 12/03/21 Time of Service: 16:00 Operative Note Operative Note DATE OF PROCEDURE: 12/03/21 PRE-OP DIAGNOSIS: Left Forearm Mass POST-OP DIAGNOSIS: other (Left Forearm Traumatic Hematoma) PROCEDURE: Excision of complex forearm hematoma with cyst wall. SURGEON: Pablo Tadeo ANESTHESIA TYPE: General:No Airway Refer to Anesthesia Record ESTIMATED BLOOD LOSS: 100 TOURNIQUET TIME: 0 COMPLICATIONS: Other (Bleeding was encountered after removal of the deep portions of the cyst wall. There is no recognizable vessel injury but very friable tissues with some arterial branch which was able to be cauterized and stopped.) Indications: Tate is a 71-year-old who suffered an injury to his left forearm using a knife. He had some muscle injury but was able to be treated nonoperatively with simple closure. However, he started to develop a mass about the left forearm. MRI suggested this was a complex hematoma within the musculature of the left forearm. It was also causing some nerve type symptoms as it was resting on top of the median nerve. Given its size and the symptoms he is experiencing I recommended an excision of this mass. I discussed the risk of the procedure to include bleeding, infection, pain, stiffness, recurrence, damage to nerves and vessels, damage to muscles and tendons. Despite these risk, he elects to proceed. Findings: I there was a complex hematoma underlying some of the flexor musculature. There is no organized cyst wall to it. The hematoma was evacuated with deep brown fluid. The cyst wall was removed cautiously. The deeper cystic structures were removed and at that time there was noted to be brisk bleeding. There was no marybeth arterial injury but there appeared to be some friable tissue in this area. Identification was difficult. Using electrocautery bipolar as well as pressure the bleeding was controlled. Procedure Description: Tate was greeted in the preoperative holding area. His identity was confirmed and the correct side was identified and marked. The consent was reviewed with the patient and signed. The history and physical was updated. He was taken back to the operating room and placed in the supine position with the left arm on a hand table. Prophylactic antibiotics in the form of cefazolin were administered. A timeout was performed for safe surgery. The area of prominence and mass about the forearm was marked on the skin and the superficial tissues were injected with 0.25% bupivacaine. The skin was incised sharply and the mass was identified. However there is notable muscle fibers on top of this. A natural division between the muscle fibers was developed and the mass was discovered deep to these muscles. There is a cystic rind to it which was somewhat friable and was easily entered. Upon entering this there was a gush of brown, old appearing blood. This was evacuated fully. I then used Adson forceps as well as a rongeur to remove the cystic structure. There was also what appeared to be some necrotic tissue and coagulated blood which is also in this region. This was removed from superficial to deep. Upon removing the deeper layer of the cystic structure there was an immediate moss of blood. This seemed to be coming from some friable tissue deep but without specific arterial injury. The hand remains well-perfused and no tourniquet was used. Using direct pressure as well as further identification and bipolar electrocautery I was able to gain bleeding control. There was some ooze from his bed but there is no arterial contribution. The wound was then irrigated. The deeper tissues were injected with 0.25% bupivacaine. The wound was closed with 3-0 Vicryl followed by 4-0 Monocryl in a subcuticular fashion. The wound was dressed with Xeroform followed by 4 x 4's, ABD, Kerlix and Jeovanny wrap and a pressure type dressing. The end the case all counts were correct. He tolerated the procedure well. There was increased blood loss than expected but the hand was warm and well- perfused with palpable radial pulses and capillary refill less than 2 seconds suggesting no significant arterial injury.
== END 2021-12-03 18:05 | disposition home or self-care (01) ==
PROVIDERS: PCP Nurse Practitioner Family; Visit Provider Student in an Organized Health Care Education/Training Program
PROC: (CPT 25076; principal; 2021-12-03 17:15)
DX: S50.12XS Contusion of left forearm, sequela (principal); E78.5 Hyperlipidemia, unspecified; F41.8 Other specified anxiety disorders; I67.9 Cerebrovascular disease, unspecified; S51.812S Laceration without foreign body of left forearm, sequela; W26.0XXS Contact with knife, sequela
CPT/HCPCS: 25076; J0690; J1100; J2405

== ENCOUNTER → 2021-12-13 11:05 | Outpatient (BNVA) | payer MEDICARE, SELFPAY | PROVIDERS: PCP Nurse Practitioner Family; Referring Provider Nurse Practitioner Family; Visit Provider Physician Assistant Surgical | DX: R22.32 Localized swelling, mass and lump, left upper limb (principal) ==

== ENCOUNTER → 2021-12-19 11:06 | Outpatient (BNVA) | payer MEDICARE, SELFPAY | PROVIDERS: PCP Nurse Practitioner Family; Referring Provider Nurse Practitioner Family; Visit Provider Student in an Organized Health Care Education/Training Program | DX: X58.XXXA Exposure to other specified factors, initial encounter (principal); S51.812A Laceration without foreign body of left forearm, initial encounter; R22.32 Localized swelling, mass and lump, left upper limb ==

== ENCOUNTER → 2021-12-26 11:02 | Outpatient (BNVA) | payer MEDICARE, SELFPAY | PROVIDERS: PCP Nurse Practitioner Family; Referring Provider Nurse Practitioner Family; Visit Provider Student in an Organized Health Care Education/Training Program | DX: Z47.89 Encounter for other orthopedic aftercare (principal); R22.32 Localized swelling, mass and lump, left upper limb ==

== ENCOUNTER → 2022-01-06 11:15 | Outpatient (BNVA) | payer MEDICARE, SELFPAY | PROVIDERS: PCP Nurse Practitioner Family; Referring Provider Nurse Practitioner Family; Visit Provider Student in an Organized Health Care Education/Training Program | DX: X58.XXXA Exposure to other specified factors, initial encounter (principal); R22.32 Localized swelling, mass and lump, left upper limb; S51.812A Laceration without foreign body of left forearm, initial encounter ==

== ENCOUNTER 2022-08-22 17:00 | Emergency (ER) | payer MEDICARE, SELFPAY ==
[2022-08-22 17:08] VITALS: BP 101/66; PULSE 86; RESP 18; TEMP 37.8; O2SAT 100
--- NOTE | 2022-08-22 17:30 | RT.EKG_ITS ---
APPROVED REPORT Exam: Resting ECG Reason for Exam: fatigue Patient Location: E HR:83 bpm ECG Measurements Heart Rate 83 AXIS OK 160 P 77 QRSd 103 QRS 117 QT 348 T 60 QTc 409 Conclusion Sinus rhythm...normal P axis, V-rate 60- 99 Probable left atrial enlargement...P >50mS, <-0.10mV V1 Right axis deviation...QRS axis ( 91,269) Borderline ST elevation, anterolateral leads...ST >0.06mV, I aVL V2-V6 Physician: no stemi
--- NOTE | 2022-08-22 17:52 | W.ED.GENAD ---
Discharge Plan Disposition Patient Disposition: Home Condition: Good Discharge Details Clinical Impression: Chronic fatigue and malaise, Acute dehydration Primary Care Provider: Rita Purcell ED Provider: Alek Siddiqui Home Meds and New Rx's Prescriptions: No Action aspirin 81 mg tablet,delayed release (DR/EC) 81 mg PO DAILY ascorbic acid (vitamin C) [Vitamin C] 500 MG tablet 1,000 mg PO DAILY multivitamin 1 EACH capsule 1 ea PO DAILY cholecalciferol (vitamin D3) 1,000 UNIT capsule 1,000 unit PO DAILY lorazepam 2 mg tablet 2 mg PO TID PRN (Reason: anxiety) Qty: 3 0RF Adult Probiotic 3 billion cell capsule 3,000 mmu cells PO DAILY PRN Rx Instructions: administer with a meal prednisone 10 mg tablet 5 mg PO DAILY tamsulosin [Flomax] 0.4 mg capsule 0.4 mg PO DAILY Qty: 90 3RF acetaminophen 500 mg tablet 1,000 mg PO TID Qty: 90 0RF ibuprofen 600 mg tablet 600 mg PO TID PRN (Reason: pain) Qty: 90 0RF Discharge Instructions Instructions: Dehydration (ED), Chronic Fatigue Syndrome (ED) Additional Instructions: At this time your laboratory work-up has returned and is very reassuring. No evidence of significant cardiac electrolyte renal or thyroid abnormality. No evidence of infection. You may have been mildly dehydrated, please increase your fluid intake by about 20 to 30 %/day. If you notice any worsening of your symptoms, or any new symptoms such as vomiting, diarrhea, fever, chills, shortness of breath, chest pain, numbness, weakness, or fainting , please return immediately to the emergency department for reevaluation. Please follow up with your primary care provider as soon as possible for reassessment and reevaluation. As always, it was a pleasure participating in your medical care today. Referrals: Rita Purcell [Primary Care Provider] - Medical Decision Making This is a 72-year-old male with a past medical history of BPH, notable long COVID, for which she had 7 months of symptomatology and just got better few months ago, who presents today for evaluation of fatigue. Patient states that he had a tooth extraction about 17 days ago, since then he has had continued and worsening fatigue, achiness, and feelings of notable diminished energy. He denies any chest pain or focus shortness of breath. He denies that he bloating or diarrhea. He states that he drinks plenty of fluids but thinks he may be dehydrated. He denies any new medications. He denies any numbness or tingling. He feels generally weak, but denies any focal weakness. He denies any headache or neck pain. He denies any fevers. He does admit to occasional chills though. He denies any swelling or pain in his tooth or jaw where his tooth extraction was. He states that his symptoms feel very similar to the long COVID that he recently had. No other complaints at this time. No other modifying factors. Exam demonstrates no focal neurologic deficits, no focal weakness. Mucous membranes are dry. No meningeal signs. I am uncertain as to the exact etiology of the cause of the patient's symptoms, a return of his long COVID is certainly on the differential, however electrolyte abnormality, less likely cardiac etiology, dehydration, is certainly of concern as well. We will gently rehydrate, evaluate for concerning etiologies, monitor closely and reassess. Symptoms inconsistent with stroke or brain lesion as he has no focal neurologic deficits, no headache, no dizziness or imbalance. 7:59 PM Extensive laboratory work-up was performed, and after the liter of lactated Ringer's the patient feels much better clinically. He feels well and would like to go home. He has no white count, bandemia, left shift. His electrolytes are stable, BUN is slightly elevated at 25 but creatinine is normal. Troponin, thyroid function, procalcitonin, and urinalysis are all normal. Patient feels well, COVID test is negative here. Do feel that perhaps dehydration was a component of his symptoms, however additionally there could be a component of long COVID as well. Patient stable for discharge. Recommend increasing fluid intake by about 20 to 30% at home. Discussed red flags for which to return. I have extensively reviewed the treatment plan and discharge instructions with the patient and their family. I have addressed all patient concerns at this time. The patient and family was made aware of what symptoms to monitor for that would warrant a return to the emergency department. Discussed the plan with the patient and family, they demonstrate verbal understanding and agreement with our assessment and plan at this time. The documentation in this chart was dictated using [employer] dictation software. Please excuse any dictation errors. HPI General Date/Time Provider Initiated Documentation: 08/22/22 17:25. HPI Narrative: This is a 72-year-old male with a past medical history of BPH, notable long COVID, for which she had 7 months of symptomatology and just got better few months ago, who presents today for evaluation of fatigue. Patient states that he had a tooth extraction about 17 days ago, since then he has had continued and worsening fatigue, achiness, and feelings of notable diminished energy. He denies any chest pain or focus shortness of breath. He denies that he bloating or diarrhea. He states that he drinks plenty of fluids but thinks he may be dehydrated. He denies any new medications. He denies any numbness or tingling. He feels generally weak, but denies any focal weakness. He denies any headache or neck pain. He denies any fevers. He does admit to occasional chills though. He denies any swelling or pain in his tooth or jaw where his tooth extraction was. He states that his symptoms feel very similar to the long COVID that he recently had. No other complaints at this time. No other modifying factors. Related Data Home Medications Medication Instructions Recorded Confirmed Vitamin C 500 mg tablet (ascorbic 1,000 mg PO DAILY 08/29/13 08/22/22 acid (vitamin C)) cholecalciferol (vitamin D3) 25 1,000 unit PO DAILY 08/29/13 08/22/22 mcg (1,000 unit) capsule multivitamin 1 ea PO DAILY 08/29/13 08/22/22 lorazepam 2 mg tablet 2 mg PO TID PRN anxiety #3 tabs 10/08/19 08/22/22 lactobacillus combination no.8 3 3,000 mmu cells PO DAILY PRN 10/04/20 08/22/22 billion cell capsule (Adult Probiotic) prednisone 10 mg tablet 5 mg PO DAILY 01/24/21 08/22/22 acetaminophen 500 mg tablet 1,000 mg PO TID #90 tabs 12/03/21 08/22/22 ibuprofen 600 mg tablet 600 mg PO TID PRN pain #90 tabs 12/03/21 08/22/22 aspirin 81 mg tablet,delayed 81 mg PO DAILY 12/13/21 08/22/22 release tamsulosin 0.4 mg capsule (Flomax) 0.4 mg PO DAILY #90 caps 05/12/22 08/22/22 Previous Rx's Medication Instructions Recorded lorazepam 2 mg tablet 2 mg PO TID PRN anxiety #3 tabs 10/08/19 acetaminophen 500 mg tablet 1,000 mg PO TID #90 tabs 12/03/21 ibuprofen 600 mg tablet 600 mg PO TID PRN pain #90 tabs 12/03/21 tamsulosin 0.4 mg capsule (Flomax) 0.4 mg PO DAILY #90 caps 05/12/22 Allergies Allergy/AdvReac Type Severity Reaction Status Date / Time sulfamethoxazole Allergy Intermediate Hives Verified 08/22/22 19:57 [From Bactrim] trimethoprim [From Bactrim] Allergy Intermediate Hives Verified 08/22/22 19:57 mirtazapine Allergy Mild unknown Unverified 08/22/22 19:57 doxepin AdvReac Mild keeps pt. Verified 08/22/22 19:57 awake chlorpheniramine polistirex AdvReac hallucinati Unverified 08/22/22 19:57 [From Tussionex] ons hydrocodone polistirex AdvReac hallucinati Unverified 08/22/22 19:57 [From Tussionex] ons General Stated Complaint: [facility]Medical ROCHELLE: 4 Review of Systems All systems reviewed & are unremarkable except as noted in HPI and below PFSH All Active Problems Chronic fatigue and malaise (Acute) Acute dehydration (Acute) BPH (benign prostatic hyperplasia) (Chronic) Left lateral epicondylitis (Acute 12/17/15) Dyspepsia (Acute) Laceration of forearm, left (Acute) Mass of left forearm (Acute) S/P excisional biopsy: 12/03/2021 Medical History Acute constipation Anxiety Atypical chest pain Cerebrovascular small vessel disease Delayed gastric emptying Depression Depression with anxiety Dyspepsia Dysphagia Dysuria Epigastric pain Fatigue Headaches due to 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 History of exposure to infectious disease Hyperlipidemia Insomnia Intermittent palpitations Knee pain, left Malaise Malaise and fatigue Migraine with aura Nausea Perennial allergic rhinitis Polymyalgia rheumatica PSVT (paroxysmal supraventricular tachycardia) Pulmonary hyperinflation Seborrheic keratoses Snoring Temporal arteritis Tinnitus Underweight Unintentional weight loss Weakness Surgical History Hx of circumcision pt reports surgery during college Hx of colonoscopy Hx of inguinal hernia surgery Social History Smoking/Tobacco Use Status: Former Tobacco Use Quit Date: 07/27/73 Smoking risk assessment performed?: Yes Alcohol Intake: current Alcohol Intake frequency: a few times a month Alcohol type: beer Substance use type: does not use and marijuana Details: no longer usess THC Do you feel safe at home: Yes Do you feel safe in your relationship?: Yes Exam Narrative Exam Narrative: 1.Const: Well-nourished, Well-developed, appearing stated age 2.Eyes: PERRL, no conjunctival injection, and symmetrical lids. 3.ENT: Atraumatic external nose and ears. Dry MM. Neck: Symmetric, trachea midline, No thyromegaly. 4.CVS: +S1/S2, No murmurs or gallops. Peripheral pulses 2+ and equal in all extremities. Brisk capillary refill in all extremities. 5.RESP: Unlabored respiratory effort. Clear to auscultation bilaterally. No wheezes rales or rhonchi 6.GI: Soft, Nontender/Nondistended, No hepatosplenomegaly. No guarding or rebound. 7.MSK: Normocephalic/Atraumatic, Extremities w/o deformity or ttp No cyanosis or clubbing, Normal movement of all extremities 8.Skin: Warm, Dry. No rashes or lesions. 9.Neuro: banquet director II-XII grossly intact. Sensation grossly intact, no focal neurologic deficits. 10.Psych: (AAO) x3. Appropriate mood and affect Course Vital Signs Vital signs: Vital Signs Temperature 37.8 C H 08/22/22 17:08 Pulse 86 08/22/22 17:08 Respiratory Rate 18 08/22/22 17:08 Blood Pressure 101/66 08/22/22 17:08 Pulse Oximetry 100 08/22/22 17:08 Temperature 37.8 C H 08/22/22 17:08 Pulse 86 08/22/22 17:08 Respiratory Rate 18 08/22/22 17:08 Respiratory Effort 08/22/22 17:14 Blood Pressure 101/66 08/22/22 17:08 Blood Pressure Position Sitting 08/22/22 17:08 Pulse Oximetry 100 08/22/22 17:08 Oxygen Delivery Method Room Air 08/22/22 17:08 Oxygen Flow Rate 0 08/22/22 17:08 Pain Level 5 08/22/22 17:08 Lab/Test Results Lab/Test Results: 08/22/22 17:41 Blood Blood Culture - Pending 08/22/22 17:41 Blood Blood Culture - Pending
[2022-08-22 18:13] LABS: Source Nasal/Nares
[2022-08-22] MEDS: Lactated Ringers 1,000 ML 1000 ML IV (18:15)
[2022-08-22 18:18] LABS: Abs Immature Grans 0.01 10^3/uL (0.0-0.06); Absolute Basophil Count 0.04 10^3/uL (0.0-0.2); Absolute Eosinophil Count 0.06 10^3/uL (0.0-0.7); Absolute Lymphocyte Count 1.11 10^3/uL (1.2-3.4); Absolute Monocyte Count 0.56 10^3/uL (0.1-0.8); Basophils % 0.5; Eosinophils % 0.8; HCT 44.3 % (40.0-50.0); HGB 14.1 g/dL (13.5-17.5); Immature Grans % 0.1; Lymphocytes % 14.5; MCH 29.9 pg (27.0-33.0); MCHC 31.8 % (32.0-36.0); MCV 94 fL (80-95); MPV 9.3 fL (8.0-11.0); Monocytes % 7.3; Neutrophils % 76.8; Platelet Count 260 10^3/uL (130-400); RBC 4.72 10^6/uL (4.36-5.78); RDW 13.7 % (11.8-14.1); WBC 7.68 10^3/uL (4.4-10.8)
[2022-08-22 18:43] LABS: ALT 38 U/L (16-63); AST 18 U/L (15-37); Albumin 4.1 g/dL (3.4-5.0); Alkaline Phosphatase 74 U/L (46-116); Anion Gap 2.9 mmol/L (3-11); BUN 25 mg/dL (7-18); Bilirubin, Total 0.3 mg/dL (0.2-1.0); CO2 33.1 mmol/L (21.0-32.0); CREATININE 0.8 mg/dL (0.70-1.30); Calcium 9.5 mg/dL (8.5-10.1); Chloride 105 mmol/L (98-107); Estimated GFR 92.87 (mL/min/1.73m2); Glucose 96 mg/dL (74-106); Potassium 3.8 mmol/L (3.5-5.1); Sodium 141 mmol/L (136-145); TSH (W/Ref FT4) 2.19 uIU/mL (0.36-3.74); Total Protein 7.3 g/dL (6.4-8.2); Troponin I < 50 ng/L (<or=60)
[2022-08-22 18:45] LABS: COVID-19 PCR Negative (Negative)
[2022-08-22 18:47] LABS: Procalcitonin < 0.1 ng/mL
[2022-08-22 18:51] LABS: Bilirubin Negative (Negative); Blood Negative (Negative); Clarity Clear (Clear); Glucose Negative (Negative); Ketones Negative (Negative); Leukocyte Esterase Negative (Negative); Nitrite Negative (Negative); Urobilinogen 0.2 EU/dL (Up TO 0.2)
[2022-08-22 19:49] VITALS: RESP 20
[2022-08-22 19:57] VITALS: BP 115/56; PULSE 80; RESP 15; O2SAT 100
== END 2022-08-22 20:15 | disposition home or self-care (01) ==
PROVIDERS: Emergency Provider Student in an Organized Health Care Education/Training Program; PCP Nurse Practitioner Family
DX: E86.0 Dehydration (principal); R53.82 Chronic fatigue, unspecified; R53.81 Other malaise; R79.89 Other specified abnormal findings of blood chemistry; Z79.82 Long term (current) use of aspirin; Z86.16 Personal history of COVID-19; Z20.822 Contact with and (suspected) exposure to COVID-19
CPT/HCPCS: 80053; 84145; 87040; 87635; 93005; 96360; 99284; 81003; 84443; 84484; 85025; 93010

== ENCOUNTER 2022-10-23 14:06 | Outpatient (REF) | payer MEDICARE, SELFPAY ==
[2022-10-23 17:09] LABS: HCT 43.5 % (40.0-50.0); HGB 13.9 g/dL (13.5-17.5); MCV 94 fL (80-95); MPV 10.2 fL (8.0-11.0); Platelet Count 202 10^3/uL (130-400); RBC 4.63 10^6/uL (4.36-5.78); RDW 13.1 % (11.8-14.1); RDW-SD 45.1 fL
[2022-10-23 17:31] LABS: ALT 24 U/L (16-63); AST 12 U/L (15-37); Albumin 4.1 g/dL (3.4-5.0); Alkaline Phosphatase 68 U/L (46-116); Anion Gap 5.8 mmol/L (3-11); BUN 31 mg/dL (7-18); Bilirubin, Total 0.3 mg/dL (0.2-1.0); CO2 32.2 mmol/L (21.0-32.0); Calcium 9.4 mg/dL (8.5-10.1); Chloride 103 mmol/L (98-107); Estimated GFR 78.98 (mL/min/1.73m2); Glucose 119 mg/dL (74-106); Potassium 4.2 mmol/L (3.5-5.1); Sodium 141 mmol/L (136-145); Total Protein 6.6 g/dL (6.4-8.2)
== END 2022-10-23 14:07 | disposition home or self-care (01) ==
LOC: NCHCN 14:06
PROVIDERS: PCP Nurse Practitioner Family; Visit Provider Nurse Practitioner Family
DX: R53.81 Other malaise (principal); R10.9 Unspecified abdominal pain
CPT/HCPCS: 80053; 85027

== ENCOUNTER 2022-10-27 15:56 | Emergency (ER) | payer MEDICARE, SELFPAY ==
[2022-10-27] VITALS (12 sets, daily range): BP systolic 94–132; BP diastolic 50–85; PULSE 64–76; RESP 10–22; TEMP 36.6; O2SAT 97–100
--- NOTE | 2022-10-27 16:15 | DI.CT_ITS ---
Exam(s) CT HEAD WO EXAM: CT HEAD WO CLINICAL HISTORY: confusion. TECHNIQUE: Imaging Protocol: Axial computed tomography images with coronal and sagittal reformatted images were created and reviewed COMPARISON: CT CT HEAD WO from 06/07/2018 FINDINGS: Ventricles and Extra axial spaces: Normal in size and morphology for the patient's age. Hemorrhage: None. Cerebral parenchyma: Normal. Midline shift: None. Brainstem/Cerebellum: Normal. Calvarium: Normal. Visualized Paranasal sinuses/Mastoids: Clear. Soft Tissues: Unremarkable. IMPRESSION: No acute intracranial process. RADIATION DOSE DELIVERED: 756.58mGy.cm Total DLP DATA REPOSITORY: All CT scans at this facility are submitted to the National Radiology Data Registry (NRDR) Dose Index Registry (DIR) with the [employer] ([employer]). RADIATION OPTIMIZATION: All CT scans at this facility use at least one of these dose optimization te chniques: automated exposure control; mA and/or kV adjustment per patient size (includes targeted exa ms where dose is matched to clinical indication); or iterative reconstruction.
--- NOTE | 2022-10-27 16:15 | DI.CT_ITS ---
Exam(s) CT ABDOMEN PELVIS W EXAM: CT ABDOMEN PELVIS W CLINICAL HISTORY: generalized abominal pain, nausea. TECHNIQUE: Imaging Protocol: Axial computed tomography images with coronal and sagittal reformatted images were created and reviewed CONTRAST MATERIAL: Intravenous: Omnipaque 350 Contrast volume:98 ml Oral: / no COMPARISON: CT CT ABDOMEN PELVIS W from 02/15/2020 FINDINGS: Exam limited by lack of oral contrast and lack of intra-abdominal fat. ABDOMEN: Lung Bases: Mild scarring or atelectasis. Liver: Normal density. No measurable mass. Gallbladder and biliary tract: No radiodense calculus or dilation. Pancreas: Normal density, no abnormal calcifications or inflammatory process. Spleen: Normal. Kidneys: Normal size, contour and axis. No radiodense stones or obstructive uropathy. No suspicious m asses seen. Adrenal glands: No masses seen. Abdominal Aorta: Abdominal portion non-dilated. Soft tissues: Unremarkable. PELVIS: Bladder: No gross wall thickening. No calculi.No focal mass. Bowel: Large quantity of stool throughout the colon. No obstruction. No bowel wall thickening. Najma endix normal. Peritoneal cavity: Small amount of fluid in the low pelvis. No focal collection or mesenteric inflam matory response. Bones: Within normal limits for age. Reproductive organs: Mildly enlarged. Lymph nodes: Unremarkable. Impression: Large quantity of fecal material throughout the colon. No wall thickening or evidence of inflammator y changes. RADIATION DOSE DELIVERED: 576.01mGy.cm Total DLP DATA REPOSITORY: All CT scans at this facility are submitted to the National Radiology Data Registry (NRDR) Dose Index Registry (DIR) with the [employer] (ACR). RADIATION OPTIMIZATION: All CT scans at this facility use at least one of these dose optimization te chniques: automated exposure control; mA and/or kV adjustment per patient size (includes targeted exa ms where dose is matched to clinical indication); or iterative reconstruction.
--- NOTE | 2022-10-27 16:15 | RT.EKG_ITS ---
APPROVED REPORT Exam: Resting ECG Reason for Exam: chest pain Patient Location: E HR:66 bpm ECG Measurements Heart Rate 66 AXIS NM 168 P 72 QRSd 102 QRS 112 QT 397 T 74 QTc 418 Conclusion Sinus rhythm...normal P axis, V-rate 60- 99 Atrial premature complex...SV complex w/ short R-R interval Anteroseptal infarct, age indeterminate...Q >35mS, T neg, V1-V2
--- NOTE | 2022-10-27 16:27 | DI.RAD_ITS ---
Exam(s) XR CHEST 2V PA LATERAL EXAM: XR CHEST 2V PA LATERAL CLINICAL HISTORY: chest pain TECHNIQUE: 2D digital imaging was performed. COMPARISON: CR CHEST 2 VIEWS PA,LAT from 05/15/2017 FINDINGS: HEART: Normal size. Aorta: Not dilated. PULMONARY VASCULATURE: Normal. LUNGS: Hyperiflated. Clear. PLEURAL SPACE: No pleural effusion or pneumothorax. BONE:Stable mid thoracic compression fracture. IMPRESSION: No acute abnormality. DATA REPOSITORY: RADIATION DOSE DELIVERED:
--- NOTE | 2022-10-27 16:28 | ED.GENADUL_ITS ---
Discharge Plan Disposition Patient Disposition: Home Discharge Details Clinical Impression: Abdominal pain, Weakness Primary Care Provider: Rita Purcell ED Provider: Maurice Arciniega Home Meds and New Rx's Prescriptions: Continued aspirin 81 mg tablet,delayed release (DR/EC) 81 mg PO DAILY Patient Comments: not taking ascorbic acid (vitamin C) [Vitamin C] 500 MG tablet 1,000 mg PO DAILY multivitamin 1 EACH capsule 1 ea PO DAILY cholecalciferol (vitamin D3) 1,000 UNIT capsule 1,000 unit PO DAILY lorazepam 2 mg tablet 2 mg PO TID PRN (Reason: anxiety) Qty: 3 0RF Adult Probiotic 3 billion cell capsule 3,000 mmu cells PO DAILY PRN Patient Comments: not taking Rx Instructions: administer with a meal prednisone 10 mg tablet 2.5 mg PO DAILY tamsulosin [Flomax] 0.4 mg capsule 0.4 mg PO DAILY Qty: 90 3RF acetaminophen 500 mg tablet 1,000 mg PO TID Qty: 90 0RF Patient Comments: not taking ibuprofen 600 mg tablet 600 mg PO TID PRN (Reason: pain) Qty: 90 0RF Patient Comments: not taking Discharge Instructions Instructions: Abdominal Pain (ED) Additional Instructions: your blood work and cat scans did not show concerning findings at this time follow up with your primary care provider within 1-2 weeks if you feel more ill, have severe worsening pain or difficulty breathing return to the emergency department Medical Decision Making 72 yo male with hx of bph and long covid for months, who comes in with months of general fatigue, weakness and abodminal discomfort. He denies any severe chest pain/pressure, dyspnea. HE has noted intermittent bouts of confusion, though currently is caox4 and answering questions appropriately and accurately though does answer them slowly. He can't think of anything that makes the symptoms worse or better. HE is caox4, no focal deficits, CN II-XII intact. He has a soft abdomen, is tender in the luq and llq and no guarding or rebound on exam. Unclear etiology for his chronic symptoms, will obtain ecg/troponin though doubt acs, cbc, cmp, lipase, and obtain cxr and ct abdomen/pelvis. Given his complaint of intermittent confusion will obtain ct head though suspicion for cva is low given lack of deficits on exam. imaging and labs unremarkable, patient walking without assistance with normal gait, feels somewhat better with ivf and zofran. HE has no tenderness on abdominal exam and is tolerating po. He is stable for d/c, advised to f/u with pcp, return precautions given Differential Diagnosis Differential Diagnosis: long covid, electrolyte abnormality, diverticulitis Medical Records Medical records reviewed: Yes I reviewed the patient's medical records. Imaging Data Radiologic Study: Attestation: I personally reviewed and interpreted this imaging study as follows: Imaging: CT Scan Radiologist's impression: PROCEDURE INFORMATION: Exam: CT Head Without Contrast Exam date and time: 10/27/2022 5:25 PM Age: 72 years old Clinical indication: Confusion TECHNIQUE: Imaging protocol: Computed tomography of the head without contrast. Radiation optimization: All CT scans at this facility use at least one of these dose optimization techniques: automated exposure control; mA and/or kV adjustment per patient size (includes targeted exams where dose is matched to clinical indication); or iterative reconstruction. COMPARISON: MR brain wo 06/28/2018 11:58 AM FINDINGS: Brain: There is no acute intracranial hemorrhage, mass effect or midline shift. There is no large acute territorial cerebral infarct. Cerebral ventricles: No ventriculomegaly. Paranasal sinuses: Visualized sinuses are unremarkable. No fluid levels. Mastoid air cells: Visualized mastoid air cells are well aerated. Bones/joints: Unremarkable. No acute fracture. Soft tissues: Unremarkable. IMPRESSION: No acute intracranial hemorrhage, mass effect or midline shift. Radiologic Study #2: Attestation: I personally reviewed and interpreted this imaging study as follows: Imaging: CT Scan Radiologist's impression: ct abd/pelvisIMPRESSION: No acute process Radiologic Study #3: Attestation: I personally reviewed and interpreted this imaging study as follows: Imaging: X-Ray Radiologist's impression: PROCEDURE INFORMATION: Exam: XR Chest Exam date and time: 10/27/2022 5:40 PM Age: 72 years old Clinical indication: Other: Chest pain TECHNIQUE: Imaging protocol: Radiologic exam of the chest. Views: 2 views. COMPARISON: CR CHEST 2 VIEWS PA,LAT 05/15/2017 4:23 PM FINDINGS: Lungs: Hyperexpanded lung conde consistent with COPD . No focal consolidation Pleural spaces: Unremarkable. No pleural effusion. No pneumothorax. Heart/Mediastinum: Unremarkable. No cardiomegaly. Bones/joints: Unremarkable. IMPRESSION: Hyperexpanded lung conde consistent with COPD Lab Data Lab results reviewed: Yes I reviewed the patient's lab results. ECG Data Attestation: I personally reviewed and interpreted this ECG (s) as follows: Prior ECG tracings: available for review Interpretation: sinus rhythm, rate of 66, no acute changes from prior ekg, no stemi HPI General Mode of arrival: EMS . Date/Time Provider Initiated Documentation: 10/27/22 15:58 . Limitations to Documentation: no limitations . Information obtained by: patient . History of Present Illness 72 year old M presents to the emergency department with the chief complaint of abdominal pain, described as moderate, Patient started experiencing this month(s) (5) and it has been constant. No relieving factors improve symptom(s), No exacerbating factors reported . Patient notes weakness. Patient did receive the following treatments prior to arrival, none Related Data Home Medications Medication Instructions Recorded Confirmed Vitamin C 500 mg tablet (ascorbic 1,000 mg PO DAILY 08/29/13 10/27/22 acid (vitamin C)) cholecalciferol (vitamin D3) 25 1,000 unit PO DAILY 08/29/13 10/27/22 mcg (1,000 unit) capsule multivitamin 1 ea PO DAILY 08/29/13 10/27/22 lorazepam 2 mg tablet 2 mg PO TID PRN anxiety #3 tabs 10/08/19 10/27/22 lactobacillus combination no.8 3 3,000 mmu cells PO DAILY PRN 10/04/20 08/22/22 billion cell capsule (Adult Probiotic) prednisone 10 mg tablet 2.5 mg PO DAILY 01/24/21 10/27/22 acetaminophen 500 mg tablet 1,000 mg PO TID #90 tabs 12/03/21 08/22/22 ibuprofen 600 mg tablet 600 mg PO TID PRN pain #90 tabs 12/03/21 08/22/22 aspirin 81 mg tablet,delayed 81 mg PO DAILY 12/13/21 08/22/22 release tamsulosin 0.4 mg capsule (Flomax) 0.4 mg PO DAILY #90 caps 05/12/22 10/27/22 Previous Rx's Medication Instructions Recorded lorazepam 2 mg tablet 2 mg PO TID PRN anxiety #3 tabs 10/08/19 acetaminophen 500 mg tablet 1,000 mg PO TID #90 tabs 12/03/21 ibuprofen 600 mg tablet 600 mg PO TID PRN pain #90 tabs 12/03/21 tamsulosin 0.4 mg capsule (Flomax) 0.4 mg PO DAILY #90 caps 05/12/22 Allergies Allergy/AdvReac Type Severity Reaction Status Date / Time sulfamethoxazole Allergy Intermediate Hives Verified 10/27/22 16:18 [From Bactrim] trimethoprim [From Bactrim] Allergy Intermediate Hives Verified 10/27/22 16:18 mirtazapine Allergy Mild unknown Unverified 10/27/22 16:18 doxepin AdvReac Mild keeps pt. Verified 10/27/22 16:18 awake chlorpheniramine polistirex AdvReac hallucinati Unverified 10/27/22 16:18 [From Tussionex] ons hydrocodone polistirex AdvReac hallucinati Unverified 10/27/22 16:18 [From Tussionex] ons General Stated Complaint: GenMedical ROCHELLE: 3 Review of Systems All systems reviewed & are unremarkable except as noted in HPI and below Constitutional Constitutional: Denies chills and Denies fever(s) Cardiovascular Cardiovascular: Denies dyspnea Respiratory Respiratory: Denies cough and Denies dyspnea Gastrointestinal Gastrointestinal: Denies vomiting Integumentary/Breasts Skin/Breast: Denies rash PFSH All Active Problems Abdominal pain (Acute) Weakness (Acute) BPH (benign prostatic hyperplasia) (Chronic) Left lateral epicondylitis (Acute 12/17/15) Dyspepsia (Acute) Laceration of forearm, left (Acute) Mass of left forearm (Acute) S/P excisional biopsy: 12/03/2021 Medical History Acute constipation Anxiety Atypical chest pain Cerebrovascular small vessel disease Delayed gastric emptying Depression Depression with anxiety Dyspepsia Dysphagia Dysuria Epigastric pain Fatigue Headaches due to 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 History of exposure to infectious disease Hyperlipidemia Insomnia Intermittent palpitations Knee pain, left Malaise Malaise and fatigue Migraine with aura Nausea Perennial allergic rhinitis Polymyalgia rheumatica PSVT (paroxysmal supraventricular tachycardia) Pulmonary hyperinflation Seborrheic keratoses Snoring Temporal arteritis Tinnitus Underweight Unintentional weight loss Weakness Surgical History Hx of circumcision pt reports surgery during college Hx of colonoscopy Hx of inguinal hernia surgery Social History Smoking/Tobacco Use Status: Former Tobacco Use Quit Date: 07/27/73 Smoking risk assessment performed?: Yes Alcohol Intake: current Alcohol Intake frequency: a few times a month Alcohol type: beer Substance use type: does not use and marijuana Details: no longer usess THC Do you feel safe at home: Yes Do you feel safe in your relationship?: Yes Exam Const General: no acute distress Orientation: alert HENMT Head: normal to inspection Ears: external ears normal General nose exam: external nose normal Mouth: moist mucous membranes Eyes General: appearance normal, both eyes and all related structures Neck Neck: normal visual inspection Resp Effort & Inspection: normal respiratory effort and able to speak in complete sentences Auscultation: clear to auscultation bilaterally Cardio Jugular venous pressure: no JVD Rate: regular rate Heart Sounds: no murmurs GI Palpation: soft and tender Skin General skin exam: no rashes or lesions noted Neuro General: patient alert and patient oriented x3 Extrem General: normal to inspection Psych Mental Status: mental status grossly normal Course Vital Signs Vital signs: Vital Signs Temperature 36.6 C 10/27/22 16:19 Pulse 76 10/27/22 16:19 Respiratory Rate 18 10/27/22 16:19 Blood Pressure 98/50 L 10/27/22 16:19 Pulse Oximetry 97 10/27/22 16:19 Temperature 36.6 C 10/27/22 16:19 Temperature Source Oral 10/27/22 16:19 Pulse 76 10/27/22 16:19 Respiratory Rate 18 10/27/22 16:19 Respiratory Effort Normal, Non-Labored 10/27/22 16:17 Blood Pressure 98/50 L 10/27/22 16:19 Pulse Oximetry 97 10/27/22 16:19 Oxygen Delivery Method Room Air 10/27/22 16:19 Oxygen Flow Rate 0 10/27/22 16:19
[2022-10-27] MEDS: Normal Saline 1,000 ML 1000 ML IV (16:35)
[2022-10-27 16:37] LABS: Abs Immature Grans 0.02 10^3/uL (0.0-0.06); Absolute Basophil Count 0.04 10^3/uL (0.0-0.2); Absolute Eosinophil Count 0.07 10^3/uL (0.0-0.7); Absolute Lymphocyte Count 1.31 10^3/uL (1.2-3.4); Absolute Monocyte Count 0.42 10^3/uL (0.1-0.8); Absolute Neutrophil Count 4.89 10^3/uL (1.2-6.7); Basophils % 0.6; HCT 42.9 % (40.0-50.0); HGB 14.1 g/dL (13.5-17.5); Immature Grans % 0.3; Lymphocytes % 19.4; MCH 30.4 pg (27.0-33.0); MCHC 32.9 % (32.0-36.0); MCV 93 fL (80-95); MPV 9.8 fL (8.0-11.0); Monocytes % 6.2; Neutrophils % 72.5; Platelet Count 187 10^3/uL (130-400); RBC 4.64 10^6/uL (4.36-5.78); RDW 12.9 % (11.8-14.1); RDW-SD 43.8 fL; WBC 6.75 10^3/uL (4.4-10.8)
[2022-10-27 16:52] LABS: PTT Activated 23.8 sec (21.5-31.9); Prothrombin Time 10.1 sec (9.3-11.0)
[2022-10-27 16:53] LABS: ALT 22 U/L (16-63); AST 12 U/L (15-37); Albumin 3.8 g/dL (3.4-5.0); Alkaline Phosphatase 75 U/L (46-116); Anion Gap 5.5 mmol/L (3-11); BUN 28 mg/dL (7-18); Bilirubin, Total 0.2 mg/dL (0.2-1.0); CO2 30.5 mmol/L (21.0-32.0); CREATININE 0.8 mg/dL (0.70-1.30); Calcium 9.1 mg/dL (8.5-10.1); Chloride 104 mmol/L (98-107); Estimated GFR 92.87 (mL/min/1.73m2); Glucose 116 mg/dL (74-106); Lipase 52 U/L (16-77); Magnesium 2.4 mg/dL (1.8-2.4); Sodium 140 mmol/L (136-145); Total Protein 6.8 g/dL (6.4-8.2)
[2022-10-27 17:04] LABS: TSH (W/Ref FT4) 1.99 uIU/mL (0.36-3.74)
[2022-10-27 17:13] LABS: COVID-19 PCR Negative (Negative); Influenza A PCR Negative (Negative); Influenza B PCR Negative (Negative); RSV PCR Negative (Negative)
[2022-10-27] MEDS: Omnipaque 350 MG/ML 500 ML BTL-Imaging package 100 ML IJ (17:14)
[2022-10-27] MEDS: Normal Saline - Diluent 50 ML VIAL IJ (17:14)
[2022-10-27 17:15] LABS: Source Nasopharynx
[2022-10-27] MEDS: Normal Saline Flush 10 ML SYR IVP (17:16)
[2022-10-27 17:26] LABS: Bilirubin Negative (Negative); Blood Negative (Negative); Clarity Clear (Clear); Glucose Negative (Negative); Ketones Negative (Negative); Leukocyte Esterase Negative (Negative); Nitrite Negative (Negative); Urobilinogen 0.2 mg/dL (Up to 0.2)
--- NOTE | 2022-10-27 17:55 | DI.VRAD_ITS ---
PROCEDURE INFORMATION: Exam: CT Head Without Contrast Exam date and time: 10/27/2022 5:25 PM Age: 72 years old Clinical indication: Confusion TECHNIQUE: Imaging protocol: Computed tomography of the head without contrast. Radiation optimization: All CT scans at this facility use at least one of these dose optimization techniques: automated exposure control; mA and/or kV adjustment per patient size (includes targeted exams where dose is matched to clinical indication); or iterative reconstruction. COMPARISON: MR brain wo 06/28/2018 11:58 AM FINDINGS: Brain: There is no acute intracranial hemorrhage, mass effect or midline shift. There is no large acute territorial cerebral infarct. Cerebral ventricles: No ventriculomegaly. Paranasal sinuses: Visualized sinuses are unremarkable. No fluid levels. Mastoid air cells: Visualized mastoid air cells are well aerated. Bones/joints: Unremarkable. No acute fracture. Soft tissues: Unremarkable. IMPRESSION: No acute intracranial hemorrhage, mass effect or midline shift. Dictated and Authenticated by: Michelle Cisneros MD. Ordering:SALLY Richards MD
--- NOTE | 2022-10-27 18:02 | DI.VRAD_ITS ---
PROCEDURE INFORMATION: Exam: CT Abdomen And Pelvis With Contrast Exam date and time: 10/27/2022 5:32 PM Age: 72 years old Clinical indication: Other: Generalized abdominal pain, nausea TECHNIQUE: Imaging protocol: Computed tomography of the abdomen and pelvis with contrast. Radiation optimization: All CT scans at this facility use at least one of these dose optimization techniques: automated exposure control; mA and/or kV adjustment per patient size (includes targeted exams where dose is matched to clinical indication); or iterative reconstruction. Contrast material: OMNIPAQUE 350; Contrast volume: 98 ml; Contrast route: INTRAVENOUS (IV); COMPARISON: CT ABDOMEN PELVIS W 02/15/2020 9:42 AM FINDINGS: Liver: Normal. No mass. Gallbladder and bile ducts: Normal. No calcified stones. No ductal dilation. Pancreas: Normal. No ductal dilation. Spleen: Normal. No splenomegaly. Adrenal glands: Normal. No mass. Kidneys and ureters: Subcentimeter low attenuation areas in both kidneys are too small for characterization. Stomach and bowel: Constipation throughout the colon . No obstruction Appendix: No evidence of appendicitis. Intraperitoneal space: Mild amount of free fluid in the pelvis Vasculature: Unremarkable. No abdominal aortic aneurysm. Lymph nodes: Unremarkable. No enlarged lymph nodes. Urinary bladder: Unremarkable as visualized. Reproductive: Unremarkable as visualized. Bones/joints: Unremarkable. No acute fracture. Soft tissues: Unremarkable. IMPRESSION: No acute process Dictated and Authenticated by: Franklin Moreno MD. Ordering:SALLY Richards MD
--- NOTE | 2022-10-27 18:03 | DI.VRAD_ITS ---
PROCEDURE INFORMATION: Exam: XR Chest Exam date and time: 10/27/2022 5:40 PM Age: 72 years old Clinical indication: Other: Chest pain TECHNIQUE: Imaging protocol: Radiologic exam of the chest. Views: 2 views. COMPARISON: CR CHEST 2 VIEWS PA,LAT 05/15/2017 4:23 PM FINDINGS: Lungs: Hyperexpanded lung conde consistent with COPD . No focal consolidation Pleural spaces: Unremarkable. No pleural effusion. No pneumothorax. Heart/Mediastinum: Unremarkable. No cardiomegaly. Bones/joints: Unremarkable. IMPRESSION: Hyperexpanded lung conde consistent with COPD Dictated and Authenticated by: Franklin Moreno MD. Ordering:SALLY Richards MD
[2022-10-27 18:30] LABS: Troponin I < 50 ng/L (<or=60)
== END 2022-10-27 18:27 | disposition home or self-care (01) ==
LOC: ER 18:20
PROVIDERS: Emergency Provider Emergency Medicine; PCP Nurse Practitioner Family
DX: R10.9 Unspecified abdominal pain (principal); R53.1 Weakness; R41.0 Disorientation, unspecified; R10.812 Left upper quadrant abdominal tenderness; R10.814 Left lower quadrant abdominal tenderness; R53.83 Other fatigue; Z20.822 Contact with and (suspected) exposure to COVID-19
CPT/HCPCS: 36415; 80053; 83690; 87637; 93005; 96361; 96374; 99284; 99285; 70450; 71046; 74177; 81003; 83735; 84443; 84484; 85025; 85610; 85730; 93010

== ENCOUNTER 2022-12-19 16:14 | Outpatient (REF) | payer MEDICARE, SELFPAY ==
[2022-12-19 18:55] LABS: C Diff PCR Positive (Negative)
[2022-12-21 22:51] LABS: Campylobacter PCR Negative (Negative); Salmonella PCR Negative (Negative); Shiga Toxin PCR Negative (Negative); Shigella/Enteroinvasive Ecoli Negative (Negative)
== END 2022-12-19 16:15 | disposition home or self-care (01) ==
LOC: NCHCN 16:14
PROVIDERS: PCP Nurse Practitioner Family; Visit Provider Nurse Practitioner Family
DX: R19.7 Diarrhea, unspecified (principal)
CPT/HCPCS: 87493; 87505; 83630

== ENCOUNTER 2022-12-23 11:02 | Emergency (ER) | payer MEDICARE, SELFPAY ==
[2022-12-23] VITALS (14 sets, daily range): BP systolic 66–106; BP diastolic 18–73; PULSE 89–150; RESP 13–28; O2SAT 96–100
[2022-12-23 12:18] LABS: Lactate 0.9 mmol/L (0.6-1.4)
[2022-12-23 12:19] LABS: Abs Immature Grans 0.03 10^3/uL (0.0-0.06); Absolute Basophil Count 0.03 10^3/uL (0.0-0.2); Absolute Eosinophil Count 0.02 10^3/uL (0.0-0.7); Absolute Lymphocyte Count 1.07 10^3/uL (1.2-3.4); Absolute Monocyte Count 0.65 10^3/uL (0.1-0.8); Absolute Neutrophil Count 6.79 10^3/uL (1.2-6.7); Basophils % 0.3; Eosinophils % 0.2; HCT 45.1 % (40.0-50.0); HGB 14.8 g/dL (13.5-17.5); Immature Grans % 0.3; Lymphocytes % 12.5; MCH 29.1 pg (27.0-33.0); MCHC 32.8 % (32.0-36.0); MCV 89 fL (80-95); MPV 8.7 fL (8.0-11.0); Monocytes % 7.6; Neutrophils % 79.1; Platelet Count 365 10^3/uL (130-400); RBC 5.09 10^6/uL (4.36-5.78); RDW 11.9 % (11.8-14.1); RDW-SD 38.2 fL; WBC 8.59 10^3/uL (4.4-10.8)
[2022-12-23 12:32] LABS: Lipase 44 U/L (16-77)
[2022-12-23 12:38] LABS: ALT 22 U/L (16-63); AST 13 U/L (15-37); Albumin 3.5 g/dL (3.4-5.0); Alkaline Phosphatase 109 U/L (46-116); Anion Gap 7.8 mmol/L (3-11); BUN 23 mg/dL (7-18); Bilirubin, Total 0.4 mg/dL (0.2-1.0); CO2 31.2 mmol/L (21.0-32.0); Calcium 9.1 mg/dL (8.5-10.1); Chloride 98 mmol/L (98-107); Estimated GFR 78.98 (mL/min/1.73m2); Glucose 121 mg/dL (74-106); Magnesium 2.4 mg/dL (1.8-2.4); Potassium 3.1 mmol/L (3.5-5.1); Sodium 137 mmol/L (136-145); Total Protein 7.3 g/dL (6.4-8.2)
[2022-12-23] MEDS: Lactated Ringers 500 ML 1000 ML IV (12:46)
[2022-12-23] MEDS: Potassium Chloride 20 MEQ TABCR 40 MEQ PO (13:24)
--- NOTE | 2022-12-23 13:44 | ED.GENADUL_ITS ---
Discharge Plan Disposition Patient Disposition: Home Condition: Stable Discharge Details Clinical Impression: C. difficile diarrhea, Acute hypokalemia, Orthostatic hypotension, Acute dehydration Primary Care Provider: Rita Purcell ED Provider: Patrick Barron Home Meds and New Rx's Prescriptions: Continued aspirin 81 mg tablet,delayed release (DR/EC) 81 mg PO DAILY Patient Comments: not taking ascorbic acid (vitamin C) [Vitamin C] 500 MG tablet 1,000 mg PO DAILY multivitamin 1 EACH capsule 1 ea PO DAILY cholecalciferol (vitamin D3) 1,000 UNIT capsule 1,000 unit PO DAILY lorazepam 2 mg tablet 2 mg PO TID PRN (Reason: anxiety) Qty: 3 0RF Adult Probiotic 3 billion cell capsule 3,000 mmu cells PO DAILY PRN Patient Comments: not taking Rx Instructions: administer with a meal prednisone 10 mg tablet 2.5 mg PO DAILY tamsulosin [Flomax] 0.4 mg capsule 0.4 mg PO DAILY Qty: 90 3RF Dificid 200 mg tablet 200 mg PO BID Patient Comments: TAKE ONE TABLET BY MOUTH TWICE A DAY acetaminophen 500 mg tablet 1,000 mg PO TID Qty: 90 0RF Patient Comments: not taking ibuprofen 600 mg tablet 600 mg PO TID PRN (Reason: pain) Qty: 90 0RF Patient Comments: not taking Discharge Instructions Instructions: Hypokalemia (ED), C. Diff (Clostridioides Difficile) Infection (ED), Acute Diarrhea (ED) Additional Instructions: Please drink plenty of electrolyte balanced fluid to stay hydrated. Rest at home over the next few days. Continue to take your antibiotic for C. difficile as prescribed. Please contact your primary care physician to arrange follow-up. Return to the ER immediately for any worsening or new concerning symptoms. Referrals: Rita Purcell [Primary Care Provider] - Medical Decision Making [id number] --32-year-old male recently diagnosed with C. difficile, here with severe dehydration, generalized fatigue. Abdominal exam is benign. Patient is tachycardic and hypotensive. Patient is orthostatic. He has received 1 L IV fluid bolus. I will give additional 500 mL bolus. Labs reviewed and patient is hypokalemic. He will get potassium replacement 40meq PO and 20meq IV. 1540 --patient reassessed and feeling much better. Hemodynamically significantly improved. Plan will be for discharge upon completion of potassium supplementation. Plan for close follow-up with PCP. Lab Data Lab results reviewed: Yes I reviewed the patient's lab results. Labs: Laboratory Tests Range/Units 12/23/22 12/23/22 12/23/22 12:04 12:04 12:04 WBC (4.4-10.8) 10^3/uL RBC (4.36-5.78) 10^6/uL Hgb (13.5-17.5) g/dL Hct (40.0-50.0) % MCV (80-95) fL MCH (27.0-33.0) pg MCHC (32.0-36.0) % RDW (11.8-14.1) % Plt Count (130-400) 10^3/uL MPV (8.0-11.0) fL Immature Gran % Neutrophils % Lymphocytes % Monocytes % Eosinophils % Basophils % Nucleated RBC % (0.0-0.3) % Absolute Neutrophils (1.2-6.7) 10^3/uL Absolute Lymphocytes (1.2-3.4) 10^3/uL Absolute Monocytes (0.1-0.8) 10^3/uL Absolute Eosinophils (0.0-0.7) 10^3/uL Absolute Basophils (0.0-0.2) 10^3/uL VBG Lactate (0.6-1.4) mmol/L 0.9 Sodium (136-145) mmol/L 137 Potassium (3.5-5.1) mmol/L 3.1 L Chloride (98-107) mmol/L 98 Carbon Dioxide (21.0-32.0) mmol/L 31.2 Anion Gap (3-11) mmol/L 7.8 BUN (7-18) mg/dL 23 H Creatinine (0.70-1.30) mg/dL 1.0 Est GFR (CKD-EPI 2020) (mL/min/1.73m2) 78.98 Glucose (74-106) mg/dL 121 H Calcium (8.5-10.1) mg/dL 9.1 Magnesium (1.8-2.4) mg/dL 2.4 Total Bilirubin (0.2-1.0) mg/dL 0.4 AST (15-37) U/L 13 L ALT (16-63) U/L 22 Alkaline Phosphatase (46-116) U/L 109 Total Protein (6.4-8.2) g/dL 7.3 Albumin (3.4-5.0) g/dL 3.5 Lipase (16-77) U/L 44 Range/Units 12/23/ 12:04 WBC (4.4-10.8) 10^3/uL 8.59 RBC (4.36-5.78) 10^6/uL 5.09 Hgb (13.5-17.5) g/dL 14.8 Hct (40.0-50.0) % 45.1 MCV (80-95) fL 89 MCH (27.0-33.0) pg 29.1 MCHC (32.0-36.0) % 32.8 RDW (11.8-14.1) % 11.9 Plt Count (130-400) 10^3/uL 365 MPV (8.0-11.0) fL 8.7 Immature Gran % 0.3 Neutrophils % 79.1 Lymphocytes % 12.5 Monocytes % 7.6 Eosinophils % 0.2 Basophils % 0.3 Nucleated RBC % (0.0-0.3) % 0.0 Absolute Neutrophils (1.2-6.7) 10^3/uL 6.79 H Absolute Lymphocytes (1.2-3.4) 10^3/uL 1.07 L Absolute Monocytes (0.1-0.8) 10^3/uL 0.65 Absolute Eosinophils (0.0-0.7) 10^3/uL 0.02 Absolute Basophils (0.0-0.2) 10^3/uL 0.03 VBG Lactate (0.6-1.4) mmol/L Sodium (136-145) mmol/L Potassium (3.5-5.1) mmol/L Chloride (98-107) mmol/L Carbon Dioxide (21.0-32.0) mmol/L Anion Gap (3-11) mmol/L BUN (7-18) mg/dL Creatinine (0.70-1.30) mg/dL Est GFR (CKD-EPI 2020) (mL/min/1.73m2) Glucose (74-106) mg/dL Calcium (8.5-10.1) mg/dL Magnesium (1.8-2.4) mg/dL Total Bilirubin (0.2-1.0) mg/dL AST (15-37) U/L ALT (16-63) U/L Alkaline Phosphatase (46-116) U/L Total Protein (6.4-8.2) g/dL Albumin (3.4-5.0) g/dL Lipase (16-77) U/L HPI General Mode of arrival: ambulatory . Date/Time Provider Initiated Documentation: 12/23/22 11:45 . Limitations to Documentation: no limitations . Information obtained by: patient . HPI Narrative: 72-year-old male presents with chief complaint of generally not feeling well. Patient states he has had loose stool for the past few weeks. He was diagnosed with C. difficile recently and started on dificid and has been taking over the past couple days. He notes he thought he was feeling little bit better yesterday but, today generally weak and fatigued. Patient notes he feels dehydrated. He did have some intermittent abdominal cramping and no pain at this time. Related Data Home Medications Medication Instructions Recorded Confirmed Vitamin C 500 mg tablet (ascorbic 1,000 mg PO DAILY 08/29/13 12/23/22 acid (vitamin C)) cholecalciferol (vitamin D3) 25 1,000 unit PO DAILY 08/29/13 12/23/22 mcg (1,000 unit) capsule multivitamin 1 ea PO DAILY 08/29/13 12/23/22 lorazepam 2 mg tablet 2 mg PO TID PRN anxiety #3 tabs 10/08/19 12/23/22 lactobacillus combination no.8 3 3,000 mmu cells PO DAILY PRN 10/04/20 12/23/22 billion cell capsule (Adult Probiotic) prednisone 10 mg tablet 2.5 mg PO DAILY 01/24/21 12/23/22 acetaminophen 500 mg tablet 1,000 mg PO TID #90 tabs 12/03/21 12/23/22 ibuprofen 600 mg tablet 600 mg PO TID PRN pain #90 tabs 12/03/21 12/23/22 aspirin 81 mg tablet,delayed 81 mg PO DAILY 12/13/21 12/23/22 release tamsulosin 0.4 mg capsule (Flomax) 0.4 mg PO DAILY #90 caps 05/12/22 12/23/22 fidaxomicin 200 mg tablet (Dificid) 200 mg PO BID 12/23/22 12/23/22 Previous Rx's Medication Instructions Recorded lorazepam 2 mg tablet 2 mg PO TID PRN anxiety #3 tabs 10/08/19 acetaminophen 500 mg tablet 1,000 mg PO TID #90 tabs 12/03/21 ibuprofen 600 mg tablet 600 mg PO TID PRN pain #90 tabs 12/03/21 tamsulosin 0.4 mg capsule (Flomax) 0.4 mg PO DAILY #90 caps 05/12/22 Allergies Allergy/AdvReac Type Severity Reaction Status Date / Time sulfamethoxazole Allergy Intermediate Hives Verified 10/27/22 16:18 [From Bactrim] trimethoprim [From Bactrim] Allergy Intermediate Hives Verified 10/27/22 16:18 mirtazapine Allergy Mild unknown Unverified 10/27/22 16:18 doxepin AdvReac Mild keeps pt. Verified 10/27/22 16:18 awake chlorpheniramine polistirex AdvReac hallucinati Unverified 10/27/22 16:18 [From Tussionex] ons hydrocodone polistirex AdvReac hallucinati Unverified 10/27/22 16:18 [From Tussionex] ons General Stated Complaint: Abd Prob ROCHELLE: 3 Review of Systems All systems reviewed & are unremarkable except as noted in HPI and below Constitutional Constitutional: Denies fever(s) PFSH All Active Problems C. difficile diarrhea (Acute) Acute hypokalemia (Acute) Orthostatic hypotension (Acute) Acute dehydration (Acute) BPH (benign prostatic hyperplasia) (Chronic) Left lateral epicondylitis (Acute 12/17/15) Dyspepsia (Acute) Laceration of forearm, left (Acute) Mass of left forearm (Acute) S/P excisional biopsy: 12/03/2021 Medical History Acute constipation Anxiety Atypical chest pain Cerebrovascular small vessel disease Delayed gastric emptying Depression Depression with anxiety Dyspepsia Dysphagia Dysuria Epigastric pain Fatigue Headaches due to 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 History of exposure to infectious disease Hyperlipidemia Insomnia Intermittent palpitations Knee pain, left Malaise Malaise and fatigue Migraine with aura Nausea Perennial allergic rhinitis Polymyalgia rheumatica PSVT (paroxysmal supraventricular tachycardia) Pulmonary hyperinflation Seborrheic keratoses Snoring Temporal arteritis Tinnitus Underweight Unintentional weight loss Weakness Surgical History Hx of circumcision pt reports surgery during college Hx of colonoscopy Hx of inguinal hernia surgery Social History Smoking/Tobacco Use Status: Former Tobacco Use Quit Date: 07/27/73 Smoking risk assessment performed?: Yes Alcohol Intake: current Alcohol Intake frequency: a few times a month Alcohol type: beer Substance use type: does not use and marijuana Details: no longer usess THC Do you feel safe at home: Yes Do you feel safe in your relationship?: Yes Exam Const General: cooperative and no acute distress Nutritional Appearance: thin Orientation: alert HENMT Mouth: mucous membranes dry Eyes Conjunctivae: normal conjunctivae Sclera: normal sclerae Resp Auscultation: clear to auscultation bilaterally, no rales, no rhonchi and no wheezes Cardio Rhythm: regular rhythm GI Palpation: soft, not firm, no guarding, no masses, not rigid and nontender Skin General skin exam: decreased turgor (poor) Neuro General: patient alert, patient awake and tone normal Extrem General: no edema Psych Appearance: grossly normal Mental Status: mental status grossly normal Course Vital Signs Vital signs: Vital Signs Pulse 115 H 12/23/22 11:08 Respiratory Rate 18 12/23/22 11:08 Blood Pressure 97/73 L 12/23/22 11:08 Pulse Oximetry 100 12/23/22 11:08 Pulse 115 H 12/23/22 13:19 Pulse 89 12/23/22 13:15 Respiratory Rate 19 12/23/22 13:15 Respiratory Effort Normal 12/23/22 11:34 Blood Pressure 100/54 L 12/23/22 13:19 Blood Pressure Mean 68 12/23/22 13:15 Blood Pressure Position Sitting 12/23/22 11:08 Pulse Oximetry 100 12/23/22 13:15 Oxygen Delivery Method Room Air 12/23/22 11:08 Oxygen Flow Rate 0 12/23/22 11:08 Pain Level 0 12/23/22 11:34 Lab/Test Results Lab/Test Results: Laboratory Tests Range/Units 12/23/22 12/23/22 12/23/22 12:04 12:04 12:04 WBC (4.4-10.8) 10^3/uL RBC (4.36-5.78) 10^6/uL Hgb (13.5-17.5) g/dL Hct (40.0-50.0) % MCV (80-95) fL MCH (27.0-33.0) pg MCHC (32.0-36.0) % RDW (11.8-14.1) % Plt Count (130-400) 10^3/uL MPV (8.0-11.0) fL Immature Gran % Neutrophils % Lymphocytes % Monocytes % Eosinophils % Basophils % Nucleated RBC % (0.0-0.3) % Absolute Neutrophils (1.2-6.7) 10^3/uL Absolute Lymphocytes (1.2-3.4) 10^3/uL Absolute Monocytes (0.1-0.8) 10^3/uL Absolute Eosinophils (0.0-0.7) 10^3/uL Absolute Basophils (0.0-0.2) 10^3/uL VBG Lactate (0.6-1.4) mmol/L 0.9 Sodium (136-145) mmol/L 137 Potassium (3.5-5.1) mmol/L 3.1 L Chloride (98-107) mmol/L 98 Carbon Dioxide (21.0-32.0) mmol/L 31.2 Anion Gap (3-11) mmol/L 7.8 BUN (7-18) mg/dL 23 H Creatinine (0.70-1.30) mg/dL 1.0 Est GFR (CKD-EPI 2020) (mL/min/1.73m2) 78.98 Glucose (74-106) mg/dL 121 H Calcium (8.5-10.1) mg/dL 9.1 Magnesium (1.8-2.4) mg/dL 2.4 Total Bilirubin (0.2-1.0) mg/dL 0.4 AST (15-37) U/L 13 L ALT (16-63) U/L 22 Alkaline Phosphatase (46-116) U/L 109 Total Protein (6.4-8.2) g/dL 7.3 Albumin (3.4-5.0) g/dL 3.5 Lipase (16-77) U/L 44 Range/Units 12/23/22 12:04 WBC (4.4-10.8) 10^3/uL 8.59 RBC (4.36-5.78) 10^6/uL 5.09 Hgb (13.5-17.5) g/dL 14.8 Hct (40.0-50.0) % 45.1 MCV (80-95) fL 89 MCH (27.0-33.0) pg 29.1 MCHC (32.0-36.0) % 32.8 RDW (11.8-14.1) % 11.9 Plt Count (130-400) 10^3/uL 365 MPV (8.0-11.0) fL 8.7 Immature Gran % 0.3 Neutrophils % 79.1 Lymphocytes % 12.5 Monocytes % 7.6 Eosinophils % 0.2 Basophils % 0.3 Nucleated RBC % (0.0-0.3) % 0.0 Absolute Neutrophils (1.2-6.7) 10^3/uL 6.79 H Absolute Lymphocytes (1.2-3.4) 10^3/uL 1.07 L Absolute Monocytes (0.1-0.8) 10^3/uL 0.65 Absolute Eosinophils (0.0-0.7) 10^3/uL 0.02 Absolute Basophils (0.0-0.2) 10^3/uL 0.03 VBG Lactate (0.6-1.4) mmol/L Sodium (136-145) mmol/L Potassium (3.5-5.1) mmol/L Chloride (98-107) mmol/L Carbon Dioxide (21.0-32.0) mmol/L Anion Gap (3-11) mmol/L BUN (7-18) mg/dL Creatinine (0.70-1.30) mg/dL Est GFR (CKD-EPI 2020) (mL/min/1.73m2) Glucose (74-106) mg/dL Calcium (8.5-10.1) mg/dL Magnesium (1.8-2.4) mg/dL Total Bilirubin (0.2-1.0) mg/dL AST (15-37) U/L ALT (16-63) U/L Alkaline Phosphatase (46-116) U/L Total Protein (6.4-8.2) g/dL Albumin (3.4-5.0) g/dL Lipase (16-77) U/L
[2022-12-23] MEDS: POTASSIUM CHLORIDE 20 MEQ/100 ML BAG 50 MEQ IVPB (14:10)
== END 2022-12-23 17:22 | disposition home or self-care (01) ==
PROVIDERS: Emergency Provider Student in an Organized Health Care Education/Training Program; PCP Nurse Practitioner Family
DX: E87.6 Hypokalemia (principal); E86.0 Dehydration; I95.1 Orthostatic hypotension; A04.72 Enterocolitis due to Clostridium difficile, not specified as recurrent
CPT/HCPCS: 80053; 83690; 96361; 96365; 96366; 99284; 83605; 83735; 85025; J3480

== ENCOUNTER 2022-12-29 17:14 | Emergency (ER) | payer MEDICARE, SELFPAY ==
[2022-12-29 16:53] VITALS: BP 93/58; PULSE 105; RESP 16; TEMP 36.5; O2SAT 98
--- NOTE | 2022-12-29 18:00 | RT.EKG_ITS ---
APPROVED REPORT Exam: Resting ECG Reason for Exam: weakness Patient Location: E HR:78 bpm ECG Measurements Heart Rate 78 AXIS NM 168 P 79 QRSd 105 QRS 117 QT 372 T 71 QTc 426 Conclusion Sinus rhythm...normal P axis, V-rate 60- 99 Right axis deviation...QRS axis ( 91,269) Normal sinus rhythm at a rate of 78 with right axis deviation and interventricular conduction delay. QTc and NM within normal limits. No acute injury pattern. Compared to prior dated earlier this yea r right axis deviation is persistent. No acute changes.
[2022-12-29 18:41] LABS: ALT 33 U/L (16-63); AST 19 U/L (15-37); Albumin 3.4 g/dL (3.4-5.0); Alkaline Phosphatase 87 U/L (46-116); BUN 18 mg/dL (7-18); Bilirubin, Total 0.3 mg/dL (0.2-1.0); CREATININE 0.9 mg/dL (0.70-1.30); Calcium 8.8 mg/dL (8.5-10.1); Chloride 101 mmol/L (98-107); Estimated GFR 89.62 (mL/min/1.73m2); Glucose 96 mg/dL (74-106); Lipase 81 U/L (16-77); Sodium 134 mmol/L (136-145); Total Protein 6.7 g/dL (6.4-8.2)
[2022-12-29 18:46] LABS: Potassium 2.8 mmol/L (3.5-5.1)
[2022-12-29 18:48] LABS: Abs Immature Grans 0.02 10^3/uL (0.0-0.06); Absolute Basophil Count 0.05 10^3/uL (0.0-0.2); Absolute Eosinophil Count 0.11 10^3/uL (0.0-0.7); Absolute Lymphocyte Count 1.76 10^3/uL (1.2-3.4); Absolute Monocyte Count 0.75 10^3/uL (0.1-0.8); Basophils % 0.7; Eosinophils % 1.4; HCT 40.9 % (40.0-50.0); HGB 13.5 g/dL (13.5-17.5); Immature Grans % 0.3; Lymphocytes % 22.9; MCH 29.6 pg (27.0-33.0); MCV 90 fL (80-95); MPV 8.9 fL (8.0-11.0); Monocytes % 9.8; Neutrophils % 64.9; Platelet Count 331 10^3/uL (130-400); RBC 4.56 10^6/uL (4.36-5.78); RDW 12.3 % (11.8-14.1); RDW-SD 40.7 fL; WBC 7.69 10^3/uL (4.4-10.8)
[2022-12-29] MEDS: Potassium Chloride 20 MEQ TABCR 40 MEQ PO (19:37)
[2022-12-29] MEDS: POTASSIUM CHLORIDE 20 MEQ/100 ML BAG 50 MEQ IVPB (19:37)
[2022-12-29 19:53] LABS: Bilirubin Negative (Negative); Blood Negative (Negative); Clarity Clear (Clear); Glucose Negative (Negative); Ketones Negative (Negative); Leukocyte Esterase Negative (Negative); Nitrite Negative (Negative); Urobilinogen 0.2 mg/dL (Up to 0.2)
[2022-12-29 20:27] LABS: Magnesium 2.5 mg/dL (1.8-2.4)
[2022-12-29 21:02] VITALS: BP 110/58; PULSE 92; RESP 18; O2SAT 99
[2022-12-29 21:53] VITALS: BP 110/58; PULSE 92; RESP 18
--- NOTE | 2022-12-29 23:09 | W.ED.GENAD ---
Discharge Plan Disposition Patient Disposition: Home Discharge Details Clinical Impression: Acute hyperkalemia, Clostridium difficile colitis, Acute dehydration Primary Care Provider: Rita Purcell ED Provider: Rachel Junior Home Meds and New Rx's Prescriptions: New potassium chloride 20 mEq tablet,ER particles/crystals 20 meq PO BID Qty: 10 0RF Saccharomyces boulardii [Florastor] 250 mg capsule 250 mg PO BID Qty: 20 0RF Continued aspirin 81 mg tablet,delayed release (DR/EC) 81 mg PO DAILY Patient Comments: not taking ascorbic acid (vitamin C) [Vitamin C] 500 MG tablet 1,000 mg PO DAILY multivitamin 1 EACH capsule 1 ea PO DAILY cholecalciferol (vitamin D3) 1,000 UNIT capsule 1,000 unit PO DAILY lorazepam 2 mg tablet 2 mg PO TID PRN (Reason: anxiety) Qty: 3 0RF Adult Probiotic 3 billion cell capsule 3,000 mmu cells PO DAILY PRN Patient Comments: not taking Rx Instructions: administer with a meal prednisone 10 mg tablet 2.5 mg PO DAILY tamsulosin [Flomax] 0.4 mg capsule 0.4 mg PO DAILY Qty: 90 3RF Dificid 200 mg tablet 200 mg PO BID Patient Comments: TAKE ONE TABLET BY MOUTH TWICE A DAY acetaminophen 500 mg tablet 1,000 mg PO TID Qty: 90 0RF Patient Comments: not taking ibuprofen 600 mg tablet 600 mg PO TID PRN (Reason: pain) Qty: 90 0RF Patient Comments: not taking Discharge Instructions Instructions: Dehydration (ED) Additional Instructions: Take the Florastor as prescribed Take the potassium as prescribed Increase fluid hydration Recommend oatmeal, bananas, rice, toast, applesauce, boost or Ensure if you are able to tolerate them Follow-up with your doctor in 1 to 2 days to reassess Referrals: Rita Purcell [Primary Care Provider] - 1 day Discharge Data Discharge Date/Time-TO BE ENTERED AT DEPARTURE: 12/29/22 21:54 Medical Decision Making 72-year-old gentleman presenting with report of known C. difficile infection taking Dificid Presenting secondary to persistent weakness and diarrhea Initially blood pressure soft at 93/50, after 1 L of fluid hydration, his blood pressure is now 110/60 which appears to be his baseline His potassium was 2.8, this was supplemented with 40 mEq of oral potassium and 20 mEq of IV potassium, he is maintained on telemetry monitoring His EKG does not show evidence of acute changes related to hypokalemia His abdomen is completely nontender, I have low suspicion clinically for toxic megacolon do not feel like imaging is warranted at this time He is fully ambulatory with steady gait, orthostatics are negative, I have personally performed orthostatics in the emergency department Diet changes reviewed and PCP follow-up in 48 hours recommended He may need extension of antibiotics at the discretion of his provider but when I compare patient's diagnostic labs and clinical exam to his from his prior assessment on the , both his vitals and labs appear markedly improved He is discharged home in stable condition with stable vitals, ambulatory with steady gait HPI General Date/Time Provider Initiated Documentation: 12/29/22 17:48. HPI Narrative: This 72-year-old male presents with report of C. difficile infection which was diagnosed 8 days prior to arrival. He states he feels weak and is concerned as he is still having 6 episodes of partially formed stool daily but having trouble eating and drinking as he feels though it runs right through him. He states that when he goes from sitting to standing he feels lightheaded. He states he felt quite tired which is why he presents. He is concerned because he feels as though he should no longer be having loose stools. Denies any falls or injuries. Denies any chest pain or shortness of breath. Denies blood in stool. Related Data Home Medications Medication Instructions Recorded Confirmed Vitamin C 500 mg tablet (ascorbic 1,000 mg PO DAILY 08/29/13 12/23/22 acid (vitamin C)) cholecalciferol (vitamin D3) 25 1,000 unit PO DAILY 08/29/13 12/23/22 mcg (1,000 unit) capsule multivitamin 1 ea PO DAILY 08/29/13 12/23/22 lorazepam 2 mg tablet 2 mg PO TID PRN anxiety #3 tabs 10/08/19 12/23/22 lactobacillus combination no.8 3 3,000 mmu cells PO DAILY PRN 10/04/20 12/23/22 billion cell capsule (Adult Probiotic) prednisone 10 mg tablet 2.5 mg PO DAILY 01/24/21 12/23/22 acetaminophen 500 mg tablet 1,000 mg PO TID #90 tabs 12/03/21 12/23/22 ibuprofen 600 mg tablet 600 mg PO TID PRN pain #90 tabs 12/03/21 12/23/22 aspirin 81 mg tablet,delayed 81 mg PO DAILY 12/13/21 12/23/22 release tamsulosin 0.4 mg capsule (Flomax) 0.4 mg PO DAILY #90 caps 05/12/22 12/23/22 fidaxomicin 200 mg tablet (Dificid) 200 mg PO BID 12/23/22 12/23/22 Saccharomyces boulardii 250 mg 250 mg PO BID #20 caps 12/29/22 capsule (Florastor) potassium chloride 20 mEq 20 meq PO BID #10 tabs 12/29/22 tablet,extended release(part/cryst) Previous Rx's Medication Instructions Recorded lorazepam 2 mg tablet 2 mg PO TID PRN anxiety #3 tabs 10/08/19 acetaminophen 500 mg tablet 1,000 mg PO TID #90 tabs 12/03/21 ibuprofen 600 mg tablet 600 mg PO TID PRN pain #90 tabs 12/03/21 tamsulosin 0.4 mg capsule (Flomax) 0.4 mg PO DAILY #90 caps 05/12/22 Saccharomyces boulardii 250 mg 250 mg PO BID #20 caps 12/29/22 capsule (Florastor) potassium chloride 20 mEq 20 meq PO BID #10 tabs 12/29/22 tablet,extended release(part/cryst) Allergies Allergy/AdvReac Type Severity Reaction Status Date / Time sulfamethoxazole Allergy Intermediate Hives Verified 10/27/22 16:18 [From Bactrim] trimethoprim [From Bactrim] Allergy Intermediate Hives Verified 10/27/22 16:18 mirtazapine Allergy Mild unknown Unverified 10/27/22 16:18 doxepin AdvReac Mild keeps pt. Verified 10/27/22 16:18 awake chlorpheniramine polistirex AdvReac hallucinati Unverified 10/27/22 16:18 [From Tussionex] ons hydrocodone polistirex AdvReac hallucinati Unverified 10/27/22 16:18 [From Tussionex] ons General Stated Complaint: Nausea/Vomit/Diar ROCHELLE: 3 PFSH All Active Problems C. difficile diarrhea (Acute) Acute hypokalemia (Acute) Orthostatic hypotension (Acute) Acute dehydration (Acute) Acute hyperkalemia (Acute) Clostridium difficile colitis (Acute) Acute dehydration (Acute) BPH (benign prostatic hyperplasia) (Chronic) Left lateral epicondylitis (Acute 12/17/15) Dyspepsia (Acute) Laceration of forearm, left (Acute) Mass of left forearm (Acute) S/P excisional biopsy: 12/03/2021 Medical History Acute constipation Anxiety Atypical chest pain Cerebrovascular small vessel disease Delayed gastric emptying Depression Depression with anxiety Dyspepsia Dysphagia Dysuria Epigastric pain Fatigue Headaches due to 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 History of exposure to infectious disease Hyperlipidemia Insomnia Intermittent palpitations Knee pain, left Malaise Malaise and fatigue Migraine with aura Nausea Perennial allergic rhinitis Polymyalgia rheumatica PSVT (paroxysmal supraventricular tachycardia) Pulmonary hyperinflation Seborrheic keratoses Snoring Temporal arteritis Tinnitus Underweight Unintentional weight loss Weakness Surgical History Hx of circumcision pt reports surgery during [facility] Hx of colonoscopy Hx of inguinal hernia surgery Social History Smoking/Tobacco Use Status: Former Tobacco Use Quit Date: 07/27/73 Smoking risk assessment performed?: Yes Alcohol Intake: current Alcohol Intake frequency: a few times a month Alcohol type: beer Substance use type: does not use and marijuana Details: no longer usess THC Do you feel safe at home: Yes Do you feel safe in your relationship?: Yes Course Vital Signs Vital signs: Vital Signs Temperature 36.5 C 12/29/22 16:53 Pulse 105 H 12/29/22 16:53 Respiratory Rate 16 12/29/22 16:53 Blood Pressure 93/58 L 12/29/22 16:53 Pulse Oximetry 98 12/29/22 16:53 Temperature 36.5 C 12/29/22 16:53 Temperature Source Oral 12/29/22 16:53 Pulse 92 H 12/29/22 21:53 Respiratory Rate 18 12/29/22 21:53 Respiratory Effort Normal 12/29/22 19:30 Blood Pressure 110/58 L 12/29/22 21:53 Blood Pressure Position Supine 12/29/22 16:53 Pulse Oximetry 99 12/29/22 21:02 Oxygen Delivery Method Room Air 12/29/22 21:02 Oxygen Flow Rate 0 12/29/22 21:02 Pain Level 0 12/29/22 16:53 Lab/Test Results Lab/Test Results: Laboratory Tests Range/Units 12/29/22 12/29/22 12/29/22 18:10 18:10 18:20 WBC (4.4-10.8) 10^3/uL 7.69 RBC (4.36-5.78) 10^6/uL 4.56 Hgb (13.5-17.5) g/dL 13.5 Hct (40.0-50.0) % 40.9 MCV (80-95) fL 90 MCH (27.0-33.0) pg 29.6 MCHC (32.0-36.0) % 33.0 RDW (11.8-14.1) % 12.3 Plt Count (130-400) 10^3/uL 331 MPV (8.0-11.0) fL 8.9 Immature Gran % 0.3 Neutrophils % 64.9 Lymphocytes % 22.9 Monocytes % 9.8 Eosinophils % 1.4 Basophils % 0.7 Nucleated RBC % (0.0-0.3) % 0.0 Absolute Neutrophils (1.2-6.7) 10^3/uL 5.00 Absolute Lymphocytes (1.2-3.4) 10^3/uL 1.76 Absolute Monocytes (0.1-0.8) 10^3/uL 0.75 Absolute Eosinophils (0.0-0.7) 10^3/uL 0.11 Absolute Basophils (0.0-0.2) 10^3/uL 0.05 Sodium (136-145) mmol/L 134 L Potassium (3.5-5.1) mmol/L 2.8 L* Chloride (98-107) mmol/L 101 Carbon Dioxide (21.0-32.0) mmol/L 28.0 Anion Gap (3-11) mmol/L 5.0 BUN (7-18) mg/dL 18 Creatinine (0.70-1.30) mg/dL 0.9 Est GFR (CKD-EPI 2020) (mL/min/1.73m2) 89.62 Glucose (74-106) mg/dL 96 Calcium (8.5-10.1) mg/dL 8.8 Magnesium (1.8-2.4) mg/dL 2.5 H Total Bilirubin (0.2-1.0) mg/dL 0.3 AST (15-37) U/L 19 ALT (16-63) U/L 33 Alkaline Phosphatase (46-116) U/L 87 Total Protein (6.4-8.2) g/dL 6.7 Albumin (3.4-5.0) g/dL 3.4 Lipase (16-77) U/L 81 H Urine Color (Yellow) Urine Clarity (Clear) Urine pH (5-8) Ur Specific Butler (1.005-1.025) Urine Protein (Negative) mg/dL Urine Ketones (Negative) mg/dL Urine Blood (Negative) Urine Nitrite (Negative) Urine Bilirubin (Negative) Urine Urobilinogen (Up to 0.2) mg/dL Ur Leukocyte Esterase (Negative) Urine Glucose (Negative) mg/dL Range/Units 12/29/22 19:41 WBC (4.4-10.8) 10^3/uL RBC (4.36-5.78) 10^6/uL Hgb (13.5-17.5) g/dL Hct (40.0-50.0) % MCV (80-95) fL MCH (27.0-33.0) pg MCHC (32.0-36.0) % RDW (11.8-14.1) % Plt Count (130-400) 10^3/uL MPV (8.0-11.0) fL Immature Gran % Neutrophils % Lymphocytes % Monocytes % Eosinophils % Basophils % Nucleated RBC % (0.0-0.3) % Absolute Neutrophils (1.2-6.7) 10^3/uL Absolute Lymphocytes (1.2-3.4) 10^3/uL Absolute Monocytes (0.1-0.8) 10^3/uL Absolute Eosinophils (0.0-0.7) 10^3/uL Absolute Basophils (0.0-0.2) 10^3/uL Sodium (136-145) mmol/L Potassium (3.5-5.1) mmol/L Chloride (98-107) mmol/L Carbon Dioxide (21.0-32.0) mmol/L Anion Gap (3-11) mmol/L BUN (7-18) mg/dL Creatinine (0.70-1.30) mg/dL Est GFR (CKD-EPI 2020) (mL/min/1.73m2) Glucose (74-106) mg/dL Calcium (8.5-10.1) mg/dL Magnesium (1.8-2.4) mg/dL Total Bilirubin (0.2-1.0) mg/dL AST (15-37) U/L ALT (16-63) U/L Alkaline Phosphatase (46-116) U/L Total Protein (6.4-8.2) g/dL Albumin (3.4-5.0) g/dL Lipase (16-77) U/L Urine Color (Yellow) Yellow Urine Clarity (Clear) Clear Urine pH (5-8) 6.0 Ur Specific Butler (1.005-1.025) 1.010 Urine Protein (Negative) mg/dL Negative Urine Ketones (Negative) mg/dL Negative Urine Blood (Negative) Negative Urine Nitrite (Negative) Negative Urine Bilirubin (Negative) Negative Urine Urobilinogen (Up to 0.2) mg/dL 0.2 Ur Leukocyte Esterase (Negative) Negative Urine Glucose (Negative) mg/dL Negative
== END 2022-12-29 21:54 | disposition home or self-care (01) ==
PROVIDERS: Emergency Provider Physician Assistant; PCP Nurse Practitioner Family
DX: E87.5 Hyperkalemia (principal); E86.0 Dehydration; A04.72 Enterocolitis due to Clostridium difficile, not specified as recurrent
CPT/HCPCS: 80053; 83690; 93005; 96365; 96366; 99284; 81003; 83735; 85025; 93010; J3480

== ENCOUNTER 2022-12-31 17:35 | Outpatient (REF) | payer MEDICARE, SELFPAY ==
[2022-12-31 20:50] LABS: Abs Immature Grans 0.02 10^3/uL (0.0-0.06); Absolute Basophil Count 0.03 10^3/uL (0.0-0.2); Absolute Eosinophil Count 0.05 10^3/uL (0.0-0.7); Absolute Lymphocyte Count 1.02 10^3/uL (1.2-3.4); Absolute Monocyte Count 0.67 10^3/uL (0.1-0.8); Absolute Neutrophil Count 6.26 10^3/uL (1.2-6.7); Basophils % 0.4; Eosinophils % 0.6; HCT 39.1 % (40.0-50.0); Immature Grans % 0.2; Lymphocytes % 12.7; MCH 29.8 pg (27.0-33.0); MCHC 33.2 % (32.0-36.0); MCV 90 fL (80-95); MPV 9.5 fL (8.0-11.0); Monocytes % 8.3; Neutrophils % 77.8; Platelet Count 338 10^3/uL (130-400); RBC 4.36 10^6/uL (4.36-5.78); RDW 12.6 % (11.8-14.1); RDW-SD 41.5 fL; WBC 8.05 10^3/uL (4.4-10.8)
[2022-12-31 20:58] LABS: ALT 30 U/L (16-63); AST 26 U/L (15-37); Albumin 3.3 g/dL (3.4-5.0); Alkaline Phosphatase 85 U/L (46-116); Anion Gap 6.7 mmol/L (3-11); BUN 22 mg/dL (7-18); Bilirubin, Total 0.3 mg/dL (0.2-1.0); CO2 26.3 mmol/L (21.0-32.0); CREATININE 0.8 mg/dL (0.70-1.30); Calcium 8.8 mg/dL (8.5-10.1); Chloride 105 mmol/L (98-107); Estimated GFR 92.87 (mL/min/1.73m2); Glucose 97 mg/dL (74-106); Potassium 3.6 mmol/L (3.5-5.1); Sodium 138 mmol/L (136-145); Total Protein 6.7 g/dL (6.4-8.2)
== END 2022-12-31 17:36 | disposition home or self-care (01) ==
LOC: NCHCN 17:35
PROVIDERS: PCP Nurse Practitioner Family; Visit Provider Family Medicine
DX: A04.72 Enterocolitis due to Clostridium difficile, not specified as recurrent (principal); R19.7 Diarrhea, unspecified
CPT/HCPCS: 80053; 85025

== ENCOUNTER 2023-01-01 12:52 | Outpatient (REF) | payer MEDICARE, SELFPAY ==
[2023-01-01 11:14] LABS: C Diff PCR Negative (Negative)
== END 2023-01-01 12:53 | disposition home or self-care (01) ==
LOC: NCHCN 12:52
PROVIDERS: PCP Nurse Practitioner Family; Visit Provider Family Medicine
DX: A04.72 Enterocolitis due to Clostridium difficile, not specified as recurrent (principal); R19.7 Diarrhea, unspecified
CPT/HCPCS: 87493

== ENCOUNTER 2023-01-08 15:10 | Outpatient (REF) | payer MEDICARE, SELFPAY ==
[2023-01-08 14:45] LABS: HCT 43.1 % (40.0-50.0); HGB 13.9 g/dL (13.5-17.5); MCH 29.3 pg (27.0-33.0); MCHC 32.3 % (32.0-36.0); MCV 91 fL (80-95); MPV 9.7 fL (8.0-11.0); Platelet Count 269 10^3/uL (130-400); RBC 4.74 10^6/uL (4.36-5.78); RDW 13.2 % (11.8-14.1); RDW-SD 43.9 fL
[2023-01-08 15:28] LABS: ALT 46 U/L (16-63); AST 25 U/L (15-37); Albumin 3.6 g/dL (3.4-5.0); Alkaline Phosphatase 83 U/L (46-116); Anion Gap 7.8 mmol/L (3-11); BUN 19 mg/dL (7-18); Bilirubin, Total 0.4 mg/dL (0.2-1.0); CO2 30.2 mmol/L (21.0-32.0); CREATININE 0.9 mg/dL (0.70-1.30); Calcium 9.1 mg/dL (8.5-10.1); Chloride 103 mmol/L (98-107); Estimated GFR 89.62 (mL/min/1.73m2); Glucose 78 mg/dL (74-106); Potassium 3.3 mmol/L (3.5-5.1); Sodium 141 mmol/L (136-145); Total Protein 6.7 g/dL (6.4-8.2)
== END 2023-01-08 15:11 | disposition home or self-care (01) ==
LOC: NCHCN 15:10
PROVIDERS: PCP Nurse Practitioner Family; Visit Provider Nurse Practitioner Family
DX: R19.7 Diarrhea, unspecified (principal)
CPT/HCPCS: 80053; 85027

== ENCOUNTER → 2023-02-24 14:48 | Outpatient (BNVA) | payer MEDICARE, SELFPAY | PROVIDERS: PCP Nurse Practitioner Family; Visit Provider Nurse Practitioner Gerontology | DX: N40.1 Benign prostatic hyperplasia with lower urinary tract symptoms (principal); R39.89 Other symptoms and signs involving the genitourinary system | CPT/HCPCS: 51798; 99213 ==

== ENCOUNTER 2023-04-10 14:11 | Outpatient (REF) | payer MEDICARE, SELFPAY ==
[2023-04-10 16:54] LABS: C Diff PCR Positive (Negative)
== END 2023-04-10 14:12 | disposition home or self-care (01) ==
LOC: LBN 14:11
PROVIDERS: PCP Nurse Practitioner Family; Visit Provider Nurse Practitioner Adult Health
DX: R19.7 Diarrhea, unspecified (principal)
CPT/HCPCS: 87493

== ENCOUNTER 2023-04-14 19:04 | Outpatient (REF) | payer MEDICARE, SELFPAY ==
[2023-04-14 16:27] LABS: C Diff PCR Positive (Negative)
== END 2023-04-14 19:05 | disposition home or self-care (01) ==
LOC: LBN 19:04
PROVIDERS: PCP Nurse Practitioner Family; Visit Provider Nurse Practitioner Adult Health
DX: Z82.49 Family history of ischemic heart disease and other diseases of the circulatory system (principal); R19.7 Diarrhea, unspecified
CPT/HCPCS: 87493

== ENCOUNTER 2023-04-17 20:45 | Outpatient (REF) | payer MEDICARE, SELFPAY ==
[2023-04-17 21:36] LABS: HCT 46.1 % (40.0-50.0); MCH 30.1 pg (27.0-33.0); MCHC 32.5 % (32.0-36.0); MCV 92 fL (80-95); MPV 9.7 fL (8.0-11.0); Platelet Count 273 10^3/uL (130-400); RBC 4.99 10^6/uL (4.36-5.78); RDW 13.4 % (11.8-14.1); RDW-SD 45.7 fL; WBC 8.14 10^3/uL (4.4-10.8)
[2023-04-17 22:43] LABS: ALT 73 U/L (16-63); AST 26 U/L (15-37); Albumin 4.1 g/dL (3.4-5.0); Alkaline Phosphatase 72 U/L (46-116); Anion Gap 9.1 mmol/L (3-11); BUN 23 mg/dL (7-18); Bilirubin, Total 0.3 mg/dL (0.2-1.0); CO2 28.9 mmol/L (21.0-32.0); Calcium 9.5 mg/dL (8.5-10.1); Chloride 101 mmol/L (98-107); Estimated GFR 78.98 (mL/min/1.73m2); Glucose 100 mg/dL (74-106); Potassium 3.4 mmol/L (3.5-5.1); Sodium 139 mmol/L (136-145); Total Protein 7.6 g/dL (6.4-8.2)
== END 2023-04-17 20:46 | disposition home or self-care (01) ==
LOC: NCHCN 20:45
PROVIDERS: PCP Nurse Practitioner Family; Visit Provider Nurse Practitioner Family
DX: R53.81 Other malaise (principal); R53.83 Other fatigue; R63.6 Underweight; R00.2 Palpitations; Z82.49 Family history of ischemic heart disease and other diseases of the circulatory system
CPT/HCPCS: 80053; 85027

== ENCOUNTER 2023-06-11 10:24 | Outpatient (RCR) | payer MEDICARE, SELFPAY ==
--- NOTE | 2023-06-11 12:00 | HOLTER_ITS ---
APPROVED REPORT Conclusion This is a 48-hour Holter monitor ordered for palpitations Rhythm throughout was sinus with an average heart rate of 92. Minimum was 67, maximum 150 There were moderately frequent PVCs, comprising 2.4% of total There were rare atrial premature beats. There were several brief self-limited atrial runs There was no atrial fibrillation, no SVT, no high-grade AV block, no pauses greater than 3 seconds Patient's symptoms were reported which generally corresponded to sinus tachycardia rate 1 10-1 38
== END 2023-06-25 23:59 | disposition home or self-care (01) ==
LOC: CARDOPNVT 10:24
PROVIDERS: PCP Nurse Practitioner Family; Visit Provider Nurse Practitioner Family
DX: R00.0 Tachycardia, unspecified (principal)
CPT/HCPCS: 93227; 93225; 93226